=== PATIENT | female | born 1945 | race Caucasian/White ===

== ENCOUNTER 2017-09-18 08:31 | Inpatient (IN) | payer OTHER ==
[~2017-09-18] VITALS: Ht 165.1 cm; Wt 111.7 kg
[~2017-09-18 08:31] MED LIST: ALBU90OI INH; ASPI81CH PO; ATEN50 PO; ATOR40TA PO; BUPR150ER PO; BUPR75; FURO80 PO; GUAI120S1 PO; HYDACE5 PO; HYDPAM25 PO; IBUHYD PO; IRBE150; LISI5 PO; METPRE4DP PO; Macrobid 100 M100 MG PO; Micro-K10 MEQ PO; Norco 5-325 Ta1 EACH PO; OMEP20ER; PARO12.5; PARO20 PO; POTCHL10ER PO; Pyridium200 MG PO; ROSU10TA; SPACE CHAMBER1 EACH MC; [UNRECOGNIZED DRUG - OTHER]
[2017-09-18 09:14] LABS: Alanine Aminotransfer (ALT/SGP 40 U/L (12-78); Albumin, Blood 2.9 g/dL (3.4-5.0); Albumin/Globulin Ratio 0.9 (0.8-1.8); Alk Phos 65 U/L (50-136); Anion Gap 8 mmol/L (6-16); Aspartate Aminotrans (AST/SGOT 32 U/L (12-37); Bilirubin, Total 0.6 mg/dL (0.1-1.0); Blood Urea Nitrogen 16 mg/dL (8-24); Bun/Creatinine Ratio 21.6 (12.0-20.0); CO2, Blood 26 mmol/L (21-32); Calcium, Blood 8.2 mg/dL (8.5-10.1); Chloride, Blood 107 mmol/L (98-108); Creatinine, Blood 0.74 mg/dL (0.40-1.00); Globulin, Blood 3.3 g/dL (2.2-4.0); Glomerular Filtration Rate >60 (60-); Glucose, Blood 124 mg/dL (70-99); Potassium, Blood 3.8 mmol/L (3.5-5.5); Sodium, Blood 141 mmol/L (136-145); Total Protein, Blood 6.2 g/dL (6.4-8.2); Troponin I <0.015 ng/mL (0.000-0.040)
[2017-09-18 09:33] LABS: BASOPHILS ABSOLUTE AUTO 0.03 K/mm3 (0.00-0.23); BASOPHILS PERCENT AUTO 0 % (0-2); EOSINOPHILS PERCENT AUTO 1 % (0-6); Hematocrit 37.2 % (33.0-51.0); Hemoglobin 12.2 g/dL (11.5-16.0); IMMATURE GRAN ABSOLUTE AUTO 0.03 K/mm3 (0.00-0.10); IMMATURE GRAN PERCENT AUTO 0 % (0-1); LYMPHOCYTES ABSOLUTE AUTO 1.17 K/mm3 (0.84-5.20); LYMPHOCYTES PERCENT AUTO 16 % (21-46); MONOCYTES ABSOLUTE AUTO 0.55 K/mm3 (0.16-1.47); MONOCYTES PERCENT AUTO 8 % (4-13); Mean Corpuscular HGB Conc 32.8 g/dL (31.5-36.5); Mean Corpuscular Volume 85 fL (80-100); Mean Platelet Volume 9.9 fL (9.1-12.4); NEUTROPHILS ABSOLUTE AUTO 5.46 K/mm3 (1.96-9.15); NEUTROPHILS PERCENT AUTO 74 % (41-73); Platelet Count 187 K/mm3 (150-400); RDW Coefficient Variation 13.5 % (11.7-14.2); RDW Standard Deviation 42.2 fL (35.1-46.3); Red Blood Cell Count 4.36 M/mm3 (3.80-5.20); White Blood Cell Count 7.34 K/mm3 (4.00-11.30)
[2017-09-18 11:13] LABS: Source, Urine Clean Catch
[2017-09-18 11:18] LABS: Bilirubin, Urine Neg (Neg); Blood, Urine 2+ (Neg); Glucose Qualitative, Urine Neg (Neg); Ketones, Urine Neg (Neg); Leukocyte Esterase, Urine 1+ (Neg); Nitrite, Urine Neg (Neg); Protein, Urine Neg (Neg); Urobilinogen, Urine NORM (Normal)
[2017-09-18 11:32] LABS: Appearance, Urine Clear (Clear); Color, Urine Yellow (P-Yellow)
[2017-09-18 11:33] LABS: Bacteria Many /hpf; Red Blood Cells, Urine 0-2 /hpf (0-2); Squamous Epithelial Cells Few /hpf (Few)
[2017-09-18] MEDS ORDERED: ASPI325 PO (15:47)
[2017-09-18] MEDS ORDERED: ATEN100 PO (15:51)
[2017-09-18] MEDS ORDERED: ROSU10TA PO (15:53)
[2017-09-18] MEDS ORDERED: BACL10 PO (15:55)
[2017-09-18] MEDS ORDERED: TRAZ50 PO (15:55)
[2017-09-18] MEDS ORDERED: LOSA50 PO (15:58)
[2017-09-18] MEDS ORDERED: BENZ100A PO (15:59)
[2017-09-18] MEDS ORDERED: ARIP10 PO (16:01)
[2017-09-18] MEDS ORDERED: PANT40 PO (16:04)
[2017-09-18] MEDS ORDERED: IBUP600 PO (16:05)
[2017-09-18] MEDS ORDERED: ACET325 PO (16:06)
[2017-09-18] MEDS ORDERED: MECL12.5 PO (16:08)
[2017-09-18] MEDS ORDERED: ALBU90OI INH (16:09)
[2017-09-19 03:59] LABS: BASOPHILS ABSOLUTE AUTO 0.03 K/mm3 (0.00-0.23); BASOPHILS PERCENT AUTO 1 % (0-2); EOSINOPHILS ABSOLUTE AUTO 0.15 K/mm3 (0.00-0.68); EOSINOPHILS PERCENT AUTO 3 % (0-6); Hematocrit 38.6 % (33.0-51.0); Hemoglobin 12.7 g/dL (11.5-16.0); IMMATURE GRAN ABSOLUTE AUTO 0.02 K/mm3 (0.00-0.10); IMMATURE GRAN PERCENT AUTO 0 % (0-1); LYMPHOCYTES ABSOLUTE AUTO 1.86 K/mm3 (0.84-5.20); LYMPHOCYTES PERCENT AUTO 37 % (21-46); MONOCYTES ABSOLUTE AUTO 0.47 K/mm3 (0.16-1.47); MONOCYTES PERCENT AUTO 9 % (4-13); Mean Corpuscular HGB 28.3 pg (26.0-34.0); Mean Corpuscular HGB Conc 32.9 g/dL (31.5-36.5); Mean Corpuscular Volume 86 fL (80-100); NEUTROPHILS ABSOLUTE AUTO 2.51 K/mm3 (1.96-9.15); NEUTROPHILS PERCENT AUTO 50 % (41-73); Platelet Count 201 K/mm3 (150-400); RDW Coefficient Variation 13.9 % (11.7-14.2); RDW Standard Deviation 43.2 fL (35.1-46.3); Red Blood Cell Count 4.49 M/mm3 (3.80-5.20); White Blood Cell Count 5.04 K/mm3 (4.00-11.30)
[2017-09-19 04:15] LABS: Anion Gap 7 mmol/L (6-16); Blood Urea Nitrogen 14 mg/dL (8-24); Bun/Creatinine Ratio 18.8 (12.0-20.0); CO2, Blood 31 mmol/L (21-32); Calcium, Blood 8.2 mg/dL (8.5-10.1); Chloride, Blood 107 mmol/L (98-108); Creatinine, Blood 0.75 mg/dL (0.40-1.00); Glomerular Filtration Rate >60 (60-); Glucose, Blood 116 mg/dL (70-99); Potassium, Blood 3.3 mmol/L (3.5-5.5); Sodium, Blood 145 mmol/L (136-145)
[2017-09-20 04:38] LABS: Anion Gap 9 mmol/L (6-16); Blood Urea Nitrogen 19 mg/dL (8-24); Bun/Creatinine Ratio 22.6 (12.0-20.0); CO2, Blood 30 mmol/L (21-32); Calcium, Blood 8.4 mg/dL (8.5-10.1); Chloride, Blood 102 mmol/L (98-108); Creatinine, Blood 0.84 mg/dL (0.40-1.00); Glomerular Filtration Rate >60 (60-); Glucose, Blood 124 mg/dL (70-99); Potassium, Blood 3.5 mmol/L (3.5-5.5); Sodium, Blood 141 mmol/L (136-145)
[2017-09-22] MEDS ORDERED: ATEN50 PO (17:32)
== END 2017-09-22 18:27 | disposition home or self-care (01) | DRG 292 ==
LOC: ER 08:31 → PCU 13:21 → MEDS 15:30 → PCU 15:33 → MEDS 09-20 04:11 → ENPENDDIS 09-22 14:58 → MEDS 09-22 18:27
PROVIDERS: Emergency Medicine; Internal Medicine
DX: I11.0 Hypertensive heart disease with heart failure (principal); N39.0 Urinary tract infection, site not specified; Z68.41 Body mass index [BMI] 40.0-44.9, adult; I48.0 Paroxysmal atrial fibrillation; I50.32 Chronic diastolic (congestive) heart failure; I89.0 Lymphedema, not elsewhere classified; I10 Essential (primary) hypertension; R20.0 Anesthesia of skin; B96.20 Unspecified Escherichia coli [E. coli] as the cause of diseases classified elsewhere; E66.01 Morbid (severe) obesity due to excess calories
CPT/HCPCS: 36415; 71046; 80048; 80053; 81001; 83735; 83880; 84443; 84484; 85025; 87077; 87086; 87186; 93005; 93010; 93306; 94640; 94760; 96372; 96374; 96375; 99285; J0696; J1650; J2765; J7030; Q0177

== ENCOUNTER 2017-12-21 16:44 | Emergency (ER) | payer OTHER ==
[~2017-12-21] VITALS: Ht 165.1 cm; Wt 108.9 kg
[~2017-12-21 16:44] MED LIST changes: +ACET325 PO; +ARIP10 PO; +ASPI325 PO; +ATEN100 PO; +BACL10 PO; +BENZ100A PO; +IBUP600 PO; +LOSA50 PO; +MECL12.5 PO; +PANT40 PO; +ROSU10TA PO; +TRAZ50 PO
[2017-12-21] MEDS ORDERED: Norco 5-325 Ta1 EACH PO (17:27)
[2017-12-21] MEDS ORDERED: HYDHCL25 PO (17:30)
[2017-12-21] MEDS ORDERED: Bupropion Xl150 MG PO (17:30)
[2017-12-21] MEDS ORDERED: FURO80 PO (17:30)
[2017-12-21] MEDS ORDERED: PARO30 PO (17:31)
[2017-12-21] MEDS ORDERED: ARIP10 PO (17:31)
[2017-12-21] MEDS ORDERED: Micro-K10 MEQ PO (17:32)
[2017-12-21] MEDS ORDERED: LOSA50 PO (17:32)
[2017-12-21] MEDS ORDERED: BACL10 PO (17:32)
[2017-12-21] MEDS ORDERED: ATEN25 PO (17:32)
[2017-12-21] MEDS ORDERED: ELIQUIS5 MG PO (17:33)
[2017-12-21] MEDS ORDERED: TRAZ50 PO ×2 (17:34)
[2017-12-21] MEDS ORDERED: ROSU10TA PO (17:34)
[2017-12-21] MEDS ORDERED: PANT20 PO (17:35)
== END 2017-12-21 18:50 | disposition home or self-care (01) ==
LOC: ER 16:44
DX: S42.341A Displaced spiral fracture of shaft of humerus, right arm, initial encounter for closed fracture (principal); W01.198A Fall on same level from slipping, tripping and stumbling with subsequent striking against other object, initial encounter; I48.91 Unspecified atrial fibrillation; Z79.899 Other long term (current) drug therapy
CPT/HCPCS: 29125; 73060; 96374; 96376; 99284-25; J3010

== ENCOUNTER 2018-01-24 17:18 | Emergency (ER) | payer OTHER ==
[~2018-01-24] VITALS: Ht 167.6 cm; Wt 111.1 kg
[~2018-01-24 17:18] MED LIST changes: +ATEN25 PO; +Bupropion Xl150 MG PO; +ELIQUIS5 MG PO; +HYDHCL25 PO; +PANT20 PO; +PARO30 PO
== END 2018-01-24 20:29 | disposition home or self-care (01) ==
LOC: ER 17:18
DX: S42.341D Displaced spiral fracture of shaft of humerus, right arm, subsequent encounter for fracture with routine healing (principal); L25.8 Unspecified contact dermatitis due to other agents; I10 Essential (primary) hypertension; K21.9 Gastro-esophageal reflux disease without esophagitis; E78.5 Hyperlipidemia, unspecified; Z88.0 Allergy status to penicillin; Z79.899 Other long term (current) drug therapy; Z79.01 Long term (current) use of anticoagulants; Z87.891 Personal history of nicotine dependence
CPT/HCPCS: 99282

== ENCOUNTER 2018-06-07 13:23 | Emergency (ER) | payer OTHER ==
[~2018-06-07] VITALS: Ht 162.6 cm; Wt 103.9 kg
[2018-06-07] MEDS ORDERED: BENZ100A PO (14:44)
[2018-06-07] MEDS ORDERED: ALBU90OI INH (14:44)
== END 2018-06-07 15:00 | disposition home or self-care (01) ==
LOC: ER 13:23
DX: R05 Cough (principal); I48.91 Unspecified atrial fibrillation; I50.32 Chronic diastolic (congestive) heart failure; I11.0 Hypertensive heart disease with heart failure; Z79.899 Other long term (current) drug therapy; Z88.0 Allergy status to penicillin
CPT/HCPCS: 71046; 93005; 93010; 99283-25

== ENCOUNTER → 2018-11-06 | Outpatient (CLI) | payer OTHER ==
[2018-11-06 17:00] LABS: BASOPHILS ABSOLUTE AUTO 0.02 K/mm3 (0.00-0.23); BASOPHILS PERCENT AUTO 0 % (0-2); EOSINOPHILS ABSOLUTE AUTO 0.07 K/mm3 (0.00-0.68); EOSINOPHILS PERCENT AUTO 2 % (0-6); Hematocrit 44.8 % (33.0-51.0); IMMATURE GRAN ABSOLUTE AUTO 0.02 K/mm3 (0.00-0.10); IMMATURE GRAN PERCENT AUTO 0 % (0-1); LYMPHOCYTES ABSOLUTE AUTO 1.67 K/mm3 (0.84-5.20); LYMPHOCYTES PERCENT AUTO 36 % (21-46); MONOCYTES ABSOLUTE AUTO 0.49 K/mm3 (0.16-1.47); MONOCYTES PERCENT AUTO 11 % (4-13); Mean Corpuscular HGB Conc 33.5 g/dL (31.5-36.5); Mean Corpuscular Volume 87 fL (80-100); Mean Platelet Volume 10.1 fL (9.1-12.4); NEUTROPHILS PERCENT AUTO 51 % (41-73); Platelet Count 240 K/mm3 (150-400); RDW Coefficient Variation 14.6 % (11.7-14.2); RDW Standard Deviation 46.3 fL (35.1-46.3); Red Blood Cell Count 5.17 M/mm3 (3.80-5.20); White Blood Cell Count 4.67 K/mm3 (4.00-11.30)
[2018-11-06 17:26] LABS: Alanine Aminotransfer (ALT/SGP 33 U/L (12-78); Albumin, Blood 3.1 g/dL (3.4-5.0); Albumin/Globulin Ratio 0.9 (0.8-1.8); Alk Phos 73 U/L (40-126); Anion Gap 5 mmol/L (6-16); Aspartate Aminotrans (AST/SGOT 33 U/L (12-37); Bilirubin, Total 0.5 mg/dL (0.1-1.0); Blood Urea Nitrogen 14 mg/dL (8-24); Bun/Creatinine Ratio 14.1 (12.0-20.0); CO2, Blood 28 mmol/L (21-32); Calcium, Blood 8.9 mg/dL (8.5-10.1); Chloride, Blood 103 mmol/L (98-108); Creatinine, Blood 0.99 mg/dL (0.40-1.00); Globulin, Blood 3.6 g/dL (2.2-4.0); Glomerular Filtration Rate 55 (60-); Glucose, Blood 177 mg/dL (70-99); Potassium, Blood 3.4 mmol/L (3.5-5.5); Sodium, Blood 136 mmol/L (136-145); Total Protein, Blood 6.7 g/dL (6.4-8.2)
[2018-11-06 17:27] LABS: Troponin I <0.017 ng/mL (0.000-0.040)
== END ==
LOC: LAB SHORT 16:46 → LAB EV 16:46
PROVIDERS: Emergency Medicine
DX: R06.02 Shortness of breath (principal)
CPT/HCPCS: 80053; 83880; 84484; 85025

== ENCOUNTER 2020-05-13 07:54 | Emergency (ER) | payer MEDICARE, OTHER ==
[~2020-05-13] VITALS: Ht 172.7 cm; Wt 90.7 kg
[2020-05-13] MEDS ORDERED: HYDR1TAB94 PO (09:02)
== END 2020-05-13 09:17 | disposition home or self-care (01) ==
LOC: ER 07:54
DX: R07.89 Other chest pain (principal); R10.9 Unspecified abdominal pain; I10 Essential (primary) hypertension; Z88.0 Allergy status to penicillin; Z79.01 Long term (current) use of anticoagulants; Z79.899 Other long term (current) drug therapy; W06.XXXA Fall from bed, initial encounter
CPT/HCPCS: 71046; 99283-25; A9270-GY

== ENCOUNTER 2020-05-22 13:15 | Emergency (ER) | payer MEDICARE, OTHER ==
[~2020-05-22] VITALS: Ht 162.6 cm; Wt 99.8 kg
[~2020-05-22 13:15] MED LIST changes: +HYDR1TAB94 PO
[2020-05-22] MEDS ORDERED: Norco 5-325 Ta1 EACH PO (15:50)
[2020-05-22] MEDS ORDERED: SERT50 PO (16:05)
== END 2020-05-22 16:20 | disposition home or self-care (01) ==
LOC: ER 13:15
DX: S20.212A Contusion of left front wall of thorax, initial encounter (principal); I48.91 Unspecified atrial fibrillation; I10 Essential (primary) hypertension; Z79.899 Other long term (current) drug therapy; Z79.01 Long term (current) use of anticoagulants; X58.XXXA Exposure to other specified factors, initial encounter
CPT/HCPCS: 71100; 99283-25

== ENCOUNTER 2020-08-13 15:07 | Emergency (ER) | payer MEDICARE, OTHER ==
[~2020-08-13] VITALS: Ht 160 cm; Wt 99.8 kg
[~2020-08-13 15:07] MED LIST changes: +SERT50 PO
[2020-08-13] MEDS ORDERED: Norco 5-325 Ta1 EACH PO (16:28)
[2020-09-29] MEDS ORDERED: Roxicodone5 MG PO (16:22)
== END 2020-08-13 16:40 | disposition home or self-care (01) ==
LOC: ER 15:07
DX: S20.211A Contusion of right front wall of thorax, initial encounter (principal); I10 Essential (primary) hypertension; I48.91 Unspecified atrial fibrillation; Z88.0 Allergy status to penicillin; Z79.01 Long term (current) use of anticoagulants; Z79.899 Other long term (current) drug therapy; W18.09XA Striking against other object with subsequent fall, initial encounter; Y92.009 Unspecified place in unspecified non-institutional (private) residence as the place of occurrence of the external cause
CPT/HCPCS: 71046; 99283-25

== ENCOUNTER 2020-09-23 14:26 | Emergency (ER) | payer MEDICARE, OTHER ==
[~2020-09-23] VITALS: Ht 162.6 cm; Wt 135.6 kg
[2020-09-23 15:06] LABS: BASOPHILS ABSOLUTE AUTO 0.06 K/mm3 (0.00-0.23); BASOPHILS PERCENT AUTO 1 % (0-2); EOSINOPHILS ABSOLUTE AUTO 0.12 K/mm3 (0.00-0.68); EOSINOPHILS PERCENT AUTO 1 % (0-6); Hematocrit 45.2 % (33.0-51.0); Hemoglobin 14.9 g/dL (11.5-16.0); IMMATURE GRAN ABSOLUTE AUTO 0.15 K/mm3 (0.00-0.10); IMMATURE GRAN PERCENT AUTO 2 % (0-1); LYMPHOCYTES ABSOLUTE AUTO 1.27 K/mm3 (0.84-5.20); LYMPHOCYTES PERCENT AUTO 13 % (21-46); MONOCYTES ABSOLUTE AUTO 0.57 K/mm3 (0.16-1.47); MONOCYTES PERCENT AUTO 6 % (4-13); Mean Corpuscular HGB 29.3 pg (26.0-34.0); Mean Corpuscular Volume 89 fL (80-100); Mean Platelet Volume 10.4 fL (9.1-12.4); NEUTROPHILS PERCENT AUTO 77 % (41-73); Platelet Count 300 K/mm3 (150-400); RDW Coefficient Variation 13.9 % (11.7-14.2); RDW Standard Deviation 45.4 fL (35.1-46.3); Red Blood Cell Count 5.08 M/mm3 (3.80-5.20); White Blood Cell Count 9.57 K/mm3 (4.00-11.30)
[2020-09-23 15:25] LABS: Alanine Aminotransfer (ALT/SGP 83 U/L (12-78); Albumin, Blood 3.1 g/dL (3.4-5.0); Alk Phos 77 U/L (50-136); Anion Gap 7 mmol/L (6-16); Aspartate Aminotrans (AST/SGOT 71 U/L (12-37); Bilirubin, Total 0.4 mg/dL (0.1-1.0); Blood Urea Nitrogen 13 mg/dL (8-24); Bun/Creatinine Ratio 14.4 (12.0-20.0); CO2, Blood 30 mmol/L (21-32); Calcium, Blood 8.3 mg/dL (8.5-10.1); Chloride, Blood 107 mmol/L (98-108); Glomerular Filtration Rate >60 (60-); Glucose, Blood 122 mg/dL (70-99); Potassium, Blood 3.1 mmol/L (3.5-5.5); Sodium, Blood 144 mmol/L (136-145); Total Protein, Blood 6.1 g/dL (6.4-8.2); Troponin I <0.015 ng/mL (0.000-0.040)
[2020-09-23 23:12] LABS: Source, Urine Clean Catch
[2020-09-23 23:15] LABS: Bilirubin, Urine Neg (Neg); Blood, Urine 2+ (Neg); Glucose Qualitative, Urine Neg (Neg); Ketones, Urine Neg (Neg); Leukocyte Esterase, Urine 2+ (Neg); Nitrite, Urine Pos (Neg); Protein, Urine 1+ (Neg); Urobilinogen, Urine 1+ (Normal)
[2020-09-23 23:27] LABS: Amorphous Light (0-Heavy); Appearance, Urine Hazy (Clear); Bacteria Many /hpf; Color, Urine Yellow (P-Yellow); Mucus Light (0-Heavy); Squamous Epithelial Cells Few /hpf (Few)
[2020-09-24] MEDS ORDERED: MACROBID 100 M100 MG PO (00:44)
[2020-09-29] MEDS ORDERED: Roxicodone5 MG PO (16:22)
== END 2020-09-24 01:12 | disposition home or self-care (01) ==
LOC: ER 14:26
PROVIDERS: Physician Assistant
DX: N39.0 Urinary tract infection, site not specified (principal); E87.6 Hypokalemia; I10 Essential (primary) hypertension; Z79.899 Other long term (current) drug therapy; Z79.01 Long term (current) use of anticoagulants; Z88.0 Allergy status to penicillin
CPT/HCPCS: 71046; 80053; 81001; 83880; 84484; 85025; 87077; 87086; 87186; 93005; 93010; 96361; 96374; 99285-25; A9270; J1885; J7030

== ENCOUNTER 2020-11-13 16:24 | Emergency (ER) | payer MEDICARE, OTHER ==
[~2020-11-13] VITALS: Ht 162.6 cm; Wt 102.1 kg
[~2020-11-13 16:24] MED LIST changes: +MACROBID 100 M100 MG PO; +Roxicodone5 MG PO
== END 2020-11-13 17:15 | disposition home or self-care (01) ==
LOC: ER 16:24
DX: M25.562 Pain in left knee (principal); G89.29 Other chronic pain; Z88.0 Allergy status to penicillin; Z79.899 Other long term (current) drug therapy
CPT/HCPCS: 99283

== ENCOUNTER 2021-02-05 17:21 | Emergency (ER) | payer MEDICARE, OTHER ==
[~2021-02-05] VITALS: Ht 162.6 cm; Wt 99.8 kg
== END 2021-02-05 20:21 | disposition home or self-care (01) ==
LOC: ER 17:21
DX: S20.211A Contusion of right front wall of thorax, initial encounter (principal); M25.521 Pain in right elbow; I11.0 Hypertensive heart disease with heart failure; I50.9 Heart failure, unspecified; E03.9 Hypothyroidism, unspecified; K21.9 Gastro-esophageal reflux disease without esophagitis; I48.91 Unspecified atrial fibrillation; Z88.0 Allergy status to penicillin; Z79.899 Other long term (current) drug therapy; Z79.01 Long term (current) use of anticoagulants; Z86.73 Personal history of transient ischemic attack (TIA), and cerebral infarction without residual deficits; W19.XXXA Unspecified fall, initial encounter
CPT/HCPCS: 71045; 71100; 99283-25; A9270

== ENCOUNTER 2021-03-12 16:36 | Emergency (ER) | payer MEDICARE, OTHER ==
[~2021-03-12] VITALS: Ht 162.6 cm; Wt 99.8 kg
[2021-03-12 17:24] LABS: BASOPHILS ABSOLUTE AUTO 0.05 K/mm3 (0.00-0.23); BASOPHILS PERCENT AUTO 1 % (0-2); EOSINOPHILS ABSOLUTE AUTO 0.08 K/mm3 (0.00-0.68); EOSINOPHILS PERCENT AUTO 1 % (0-6); Hematocrit 47.4 % (33.0-51.0); Hemoglobin 15.3 g/dL (11.5-16.0); IMMATURE GRAN ABSOLUTE AUTO 0.07 K/mm3 (0.00-0.10); IMMATURE GRAN PERCENT AUTO 1 % (0-1); LYMPHOCYTES ABSOLUTE AUTO 0.73 K/mm3 (0.84-5.20); LYMPHOCYTES PERCENT AUTO 7 % (21-46); MONOCYTES ABSOLUTE AUTO 0.51 K/mm3 (0.16-1.47); MONOCYTES PERCENT AUTO 5 % (4-13); Mean Corpuscular HGB 30.1 pg (26.0-34.0); Mean Corpuscular HGB Conc 32.3 g/dL (31.5-36.5); Mean Corpuscular Volume 93 fL (80-100); NEUTROPHILS ABSOLUTE AUTO 9.52 K/mm3 (1.96-9.15); NEUTROPHILS PERCENT AUTO 87 % (41-73); NRBC ABSOLUTE 0.02 K/mm3 (0.00-0.02); NRBC Auto 0.2 /100 WBC (0.0-0.2); RDW Coefficient Variation 14.6 % (11.7-14.2); RDW Standard Deviation 50.4 fL (35.1-46.3); Red Blood Cell Count 5.08 M/mm3 (3.80-5.20); White Blood Cell Count 10.96 K/mm3 (4.00-11.30)
[2021-03-12 17:27] LABS: Mean Platelet Volume 10.4 fL (9.1-12.4); Platelet Count 200 K/mm3 (150-400)
[2021-03-12 17:34] LABS: Alanine Aminotransfer (ALT/SGP 81 U/L (12-78); Albumin, Blood 2.9 g/dL (3.4-5.0); Albumin/Globulin Ratio 0.8 (0.8-1.8); Alk Phos 122 U/L (50-136); Anion Gap 9 mmol/L (6-16); Aspartate Aminotrans (AST/SGOT 116 U/L (12-37); Bilirubin, Total 0.8 mg/dL (0.1-1.0); Blood Urea Nitrogen 14 mg/dL (8-24); Bun/Creatinine Ratio 19.3 (12.0-20.0); CO2, Blood 23 mmol/L (21-32); Calcium, Blood 8.6 mg/dL (8.5-10.1); Chloride, Blood 107 mmol/L (98-108); Creatinine, Blood 0.73 mg/dL (0.40-1.00); Globulin, Blood 3.5 g/dL (2.2-4.0); Glomerular Filtration Rate >60 (60-); Glucose, Blood 130 mg/dL (70-99); Potassium, Blood 4.3 mmol/L (3.5-5.5); Sodium, Blood 139 mmol/L (136-145); Total Protein, Blood 6.4 g/dL (6.4-8.2); Troponin I <0.015 ng/mL (0.000-0.040)
[2021-03-12] MEDS ORDERED: HYDR1TAB94 PO (19:21)
== END 2021-03-12 19:54 | disposition home or self-care (01) ==
LOC: ER 16:36
PROVIDERS: Physician Assistant
DX: S32.010A Wedge compression fracture of first lumbar vertebra, initial encounter for closed fracture (principal); R00.1 Bradycardia, unspecified; R29.6 Repeated falls; I11.0 Hypertensive heart disease with heart failure; I50.9 Heart failure, unspecified; I48.91 Unspecified atrial fibrillation; Z86.73 Personal history of transient ischemic attack (TIA), and cerebral infarction without residual deficits; E03.9 Hypothyroidism, unspecified; K21.9 Gastro-esophageal reflux disease without esophagitis; I50.32 Chronic diastolic (congestive) heart failure; Z87.891 Personal history of nicotine dependence; Z88.0 Allergy status to penicillin; Z79.899 Other long term (current) drug therapy; W18.30XA Fall on same level, unspecified, initial encounter
CPT/HCPCS: 71046; 72100; 80053; 84484; 85025; 93005; 93010; 99284-25; A9270

== ENCOUNTER 2021-10-13 10:53 | Emergency (ER) | payer MEDICARE, OTHER ==
[~2021-10-13] VITALS: Ht 162.6 cm; Wt 93.0 kg
[~2021-10-13 10:53] MED LIST changes: +Percocet 5-3251 EACH PO; +Voltaren100 GM TOP
[2021-10-13] MEDS ORDERED: Norco 5-325 Ta1 EACH PO (13:11)
== END 2021-10-13 13:33 | disposition home or self-care (01) ==
LOC: ER 10:53
DX: S27.321A Contusion of lung, unilateral, initial encounter (principal); S22.42XA Multiple fractures of ribs, left side, initial encounter for closed fracture; I11.0 Hypertensive heart disease with heart failure; I50.32 Chronic diastolic (congestive) heart failure; K21.9 Gastro-esophageal reflux disease without esophagitis; W10.9XXA Fall (on) (from) unspecified stairs and steps, initial encounter; Z88.0 Allergy status to penicillin; Z79.899 Other long term (current) drug therapy; Z86.73 Personal history of transient ischemic attack (TIA), and cerebral infarction without residual deficits; Z87.891 Personal history of nicotine dependence
CPT/HCPCS: 71101; A9270

== ENCOUNTER 2022-01-04 10:53 | Inpatient (IN) | payer OTHER, MEDICARE ==
[~2022-01-04] VITALS: Ht 162.6 cm; Wt 94.3 kg
[2022-01-04] MEDS ORDERED: EUTHYROX137 MC1 PO (11:12)
[2022-01-04 11:17] LABS: BASOPHILS ABSOLUTE AUTO 0.06 K/mm3 (0.00-0.23); BASOPHILS PERCENT AUTO 1 % (0-2); EOSINOPHILS ABSOLUTE AUTO 0.17 K/mm3 (0.00-0.68); EOSINOPHILS PERCENT AUTO 1 % (0-6); Hematocrit 39.9 % (33.0-51.0); Hemoglobin 12.9 g/dL (11.5-16.0); IMMATURE GRAN ABSOLUTE AUTO 0.04 K/mm3 (0.00-0.10); IMMATURE GRAN PERCENT AUTO 0 % (0-1); LYMPHOCYTES ABSOLUTE AUTO 3.61 K/mm3 (0.84-5.20); LYMPHOCYTES PERCENT AUTO 30 % (21-46); MONOCYTES ABSOLUTE AUTO 0.87 K/mm3 (0.16-1.47); MONOCYTES PERCENT AUTO 7 % (4-13); Mean Corpuscular HGB 28.4 pg (26.0-34.0); Mean Corpuscular HGB Conc 32.3 g/dL (31.5-36.5); Mean Corpuscular Volume 88 fL (80-100); Mean Platelet Volume 10.5 fL (9.1-12.4); NEUTROPHILS ABSOLUTE AUTO 7.48 K/mm3 (1.96-9.15); NEUTROPHILS PERCENT AUTO 61 % (41-73); Platelet Count 282 K/mm3 (150-400); RDW Coefficient Variation 14.7 % (11.7-14.2); RDW Standard Deviation 47.3 fL (35.1-46.3); Red Blood Cell Count 4.55 M/mm3 (3.80-5.20); White Blood Cell Count 12.23 K/mm3 (4.00-11.30)
[2022-01-04 11:35] LABS: Albumin, Blood 2.7 g/dL (3.4-5.0); Albumin/Globulin Ratio 0.9 (0.8-1.8); Bilirubin, Total 0.5 mg/dL (0.1-1.0); Bun/Creatinine Ratio 24.1 (12.0-20.0); Calcium, Blood 8.3 mg/dL (8.5-10.1); Creatinine, Blood 0.96 mg/dL (0.40-1.00); Globulin, Blood 2.9 g/dL (2.2-4.0); Potassium, Blood 2.7 mmol/L (3.5-5.5); Total Protein, Blood 5.6 g/dL (6.4-8.2)
--- NOTE | 2022-01-04 18:58 | NUR ---
SHIFT SUMMARY PT ADMITTED FROM ED FOR R FEMUR FRACTURE. OPEN FRACTURE WITH KNEE IMMOBILIZER IN PLACE WITH ABD PAD OVER OPEN SKIN. PT ON BLOOD THINNERS BUT DID NOT TAKE HER BLOOD THINNER TODAY. PT NPO AT MIDNIGHT FOR SURGERY TOMORROW. PAIN TREATED PER EMR WITH GOOD EFFECT. VAZQUEZ IN PLACE, PATENT AND DRAINING TO GRAVITY. VSS. REPORT GIVEN TO CATHERINE MERRITT.
[2022-01-05 03:19] LABS: SARS-Cov-2 (COVID-19) PCR, MMC NEGATIVE (NEGATIVE)
--- NOTE | 2022-01-05 04:21 | NUR ---
SUMMARY PT PAIN MEDS CHANGED THIS SHIFT. PT PAIN HAS BEEN MANAGED WELL DURING SHIFT. PT VAZQUEZ DRAINING WELL. PT HAS BEEN NPO SINCE MIDNIGHT. PT HAS BEEN ABLE TO SLEEP DURING SHIFT.
[2022-01-05 06:34] LABS: Albumin, Blood 2.7 g/dL (3.4-5.0); Bilirubin, Total 0.7 mg/dL (0.1-1.0); Bun/Creatinine Ratio 24.2 (12.0-20.0); Calcium, Blood 8.1 mg/dL (8.5-10.1); Creatinine, Blood 0.75 mg/dL (0.40-1.00); Globulin, Blood 2.7 g/dL (2.2-4.0); Magnesium, Blood 1.9 mg/dL (1.6-2.4); Potassium, Blood 2.9 mmol/L (3.5-5.5); Total Protein, Blood 5.4 g/dL (6.4-8.2)
[2022-01-05 06:35] LABS: International Normalized Ratio 1.09; Prothrombin Time Results 11.4 Sec (9.7-11.5)
[2022-01-05 06:44] LABS: BASOPHILS ABSOLUTE AUTO 0.06 K/mm3 (0.00-0.23); BASOPHILS PERCENT AUTO 1 % (0-2); EOSINOPHILS ABSOLUTE AUTO 0.14 K/mm3 (0.00-0.68); EOSINOPHILS PERCENT AUTO 1 % (0-6); Hematocrit 34.6 % (33.0-51.0); Hemoglobin 11.7 g/dL (11.5-16.0); IMMATURE GRAN ABSOLUTE AUTO 0.13 K/mm3 (0.00-0.10); IMMATURE GRAN PERCENT AUTO 1 % (0-1); LYMPHOCYTES ABSOLUTE AUTO 1.97 K/mm3 (0.84-5.20); LYMPHOCYTES PERCENT AUTO 15 % (21-46); MONOCYTES PERCENT AUTO 8 % (4-13); Mean Corpuscular HGB 29.5 pg (26.0-34.0); Mean Corpuscular HGB Conc 33.8 g/dL (31.5-36.5); Mean Corpuscular Volume 87 fL (80-100); Mean Platelet Volume 10.5 fL (9.1-12.4); NEUTROPHILS ABSOLUTE AUTO 10.01 K/mm3 (1.96-9.15); NEUTROPHILS PERCENT AUTO 75 % (41-73); Platelet Count 197 K/mm3 (150-400); RDW Coefficient Variation 14.9 % (11.7-14.2); RDW Standard Deviation 47.9 fL (35.1-46.3); Red Blood Cell Count 3.97 M/mm3 (3.80-5.20); White Blood Cell Count 13.31 K/mm3 (4.00-11.30)
--- NOTE | 2022-01-05 10:22 | NUR ---
PT HR SUSTAINING IN 130-140'S PER AUTOMATIC BRINE MIXER OPERATOR. CALL PLACED TO HOSPITALIST AND ORDERS RECEIVED.
--- NOTE | 2022-01-05 13:34 | NUR ---
PT TO PROCEDURE AT 1200.
--- NOTE | 2022-01-05 13:38 | NUR ---
01/05/22 1338 Guerline Rios PATIENT ARRIVED TO OR WITH VAZQUEZ CATHETER IN PLACE DRAINING YELLOW URINE.
--- NOTE | 2022-01-05 18:03 | NUR ---
SHIFT SUMMARY PT S/P FOR ORIF TO R DISTAL FEMUR. LEG IMMOBILIZER IN PLACE WITH LEELA WRAP DRESSING UNDER IT, CDI. PT ON TELE CONVERTING BETWEEN SINUS AND AFIB. PULSE TACH'D UP TO THE 130'S-140'S AND TREATED PER EMR. NO C/O PAIN POST OP. VAZQUEZ IN PLACE AND DRAINING TO GRAVITY. VSS.
[2022-01-06 05:01] LABS: BASOPHILS ABSOLUTE AUTO 0.02 K/mm3 (0.00-0.23); BASOPHILS PERCENT AUTO 0 % (0-2); EOSINOPHILS ABSOLUTE AUTO 0.01 K/mm3 (0.00-0.68); EOSINOPHILS PERCENT AUTO 0 % (0-6); Hematocrit 26.3 % (33.0-51.0); Hemoglobin 8.5 g/dL (11.5-16.0); IMMATURE GRAN PERCENT AUTO 1 % (0-1); LYMPHOCYTES ABSOLUTE AUTO 0.98 K/mm3 (0.84-5.20); LYMPHOCYTES PERCENT AUTO 7 % (21-46); MONOCYTES ABSOLUTE AUTO 0.94 K/mm3 (0.16-1.47); MONOCYTES PERCENT AUTO 6 % (4-13); Mean Corpuscular HGB 29.8 pg (26.0-34.0); Mean Corpuscular HGB Conc 32.3 g/dL (31.5-36.5); NEUTROPHILS ABSOLUTE AUTO 12.62 K/mm3 (1.96-9.15); NEUTROPHILS PERCENT AUTO 86 % (41-73); Platelet Count 192 K/mm3 (150-400); RDW Coefficient Variation 14.9 % (11.7-14.2); RDW Standard Deviation 50.4 fL (35.1-46.3); Red Blood Cell Count 2.85 M/mm3 (3.80-5.20); White Blood Cell Count 14.67 K/mm3 (4.00-11.30)
[2022-01-06 05:02] LABS: Mean Corpuscular Volume 92 fL (80-100)
[2022-01-06 05:35] LABS: Albumin, Blood 2.2 g/dL (3.4-5.0); Albumin/Globulin Ratio 0.8 (0.8-1.8); Bilirubin, Total 0.4 mg/dL (0.1-1.0); Bun/Creatinine Ratio 21.9 (12.0-20.0); Calcium, Blood 7.9 mg/dL (8.5-10.1); Creatinine, Blood 0.78 mg/dL (0.40-1.00); Globulin, Blood 2.6 g/dL (2.2-4.0); Potassium, Blood 3.5 mmol/L (3.5-5.5); Total Protein, Blood 4.8 g/dL (6.4-8.2)
--- NOTE | 2022-01-06 06:05 | NUR ---
SUMMARY PT HAS REMAINED COMFORTABLE THROUGHOUT SHIFT. NO NEW ISSUES NOTED. LEELA BANDAGE CDI. PT SLEPT OFF AND ON DURING THE SHIFT. NO NEW ISSUE NOTED.
[2022-01-06 14:31] LABS: SARS-Cov-2 (COVID-19) PCR, MMC NEGATIVE (NEGATIVE)
--- NOTE | 2022-01-06 16:30 | NUR ---
SHIFT SUMMARY POD 1 ORIF R FEMUR DRESSING REMAINS CDI DURING SHIFT. LEELA WRAP AND IMMOBILIZER IN PLACE. PATIENT WORKING WITH PT/OT. UP TO CHAIR TODAY. REPORTS FEELING VERY TIRED. PAIN INCREASED AFTER INCREASING MOBILITY. PATIENT IS 2 PERSON MAX ASSIST WITH STAND AND PIVOT. VAZQUEZ PATENT AND DRAINING PLAN TO REMOVE IN THE MORNING. PLAN IS FOR DISCHARGE TO [facility] ON MONDAY
[2022-01-07 10:44] LABS: BASOPHILS ABSOLUTE AUTO 0.04 K/mm3 (0.00-0.23); BASOPHILS PERCENT AUTO 0 % (0-2); EOSINOPHILS ABSOLUTE AUTO 0.14 K/mm3 (0.00-0.68); EOSINOPHILS PERCENT AUTO 1 % (0-6); Hemoglobin 7.9 g/dL (11.5-16.0); IMMATURE GRAN PERCENT AUTO 1 % (0-1); LYMPHOCYTES ABSOLUTE AUTO 1.13 K/mm3 (0.84-5.20); LYMPHOCYTES PERCENT AUTO 10 % (21-46); MONOCYTES ABSOLUTE AUTO 0.76 K/mm3 (0.16-1.47); MONOCYTES PERCENT AUTO 7 % (4-13); Mean Corpuscular HGB 29.8 pg (26.0-34.0); Mean Corpuscular HGB Conc 32.9 g/dL (31.5-36.5); Mean Corpuscular Volume 91 fL (80-100); Mean Platelet Volume 10.5 fL (9.1-12.4); NEUTROPHILS ABSOLUTE AUTO 8.77 K/mm3 (1.96-9.15); NEUTROPHILS PERCENT AUTO 80 % (41-73); Platelet Count 181 K/mm3 (150-400); RDW Coefficient Variation 14.9 % (11.7-14.2); RDW Standard Deviation 48.8 fL (35.1-46.3); Red Blood Cell Count 2.65 M/mm3 (3.80-5.20); White Blood Cell Count 10.94 K/mm3 (4.00-11.30)
[2022-01-07 11:04] LABS: Bun/Creatinine Ratio 25.6 (12.0-20.0); Calcium, Blood 7.4 mg/dL (8.5-10.1); Creatinine, Blood 0.67 mg/dL (0.40-1.00); Potassium, Blood 3.2 mmol/L (3.5-5.5)
--- NOTE | 2022-01-07 17:06 | NUR ---
SUMMARY: PT IS POD2 R FEMUR ORIF. A/O, VSS, TELE WNL. PT HAS DONE WELL TODAY SURGICAL SITE WNL, IMMOBILIZER IN PLACE. DR. JONES CHANGED DRESSING AT BEDSIDE. PAIN SEEMS MANAGED WITH 10MG OXYCODONE. VAZQUEZ DC'D AND PT ABLE TO VOID. ASKED DR. GUO FOR BOWEL CARE AND PLAN TO GIVE TONIGHT, PT REPORTS FEELING LIKE SHE WILL HAVE BM SOON. PT ABLE TO WORK WITH THERAPY AND UP TO CHAIR TODAY, NEEDS 2 MAX ASSIST WITH FWW AND GAIT BELT. NO ACUTE SAFETY CONCERN, WILL REPORT TO NOC RN
--- NOTE | 2022-01-08 05:10 | NUR ---
SHIFT SUMMARY PT POD 2 R ORIF, PT PAIN HAS BEEN WELL CONTROLLED MOST OF THE SHIFT. MEDICATED X1 FOR PAIN WITH EFFECT. IMMOBILIZER TO RIGHT LEG INTACT. PT PLESANT BUT DOES HAVE SOME FORGETFULNESS PT REMOVES TELE AND TUGS AT IV. IV SECURED FOR EXTRA SECURITY. PT REORIENTED NEEDED. BED ALARM IN PLACE FOR SAFETY. PT VOIDING WITHOUT DIFFICULTY AND HAS BEEN INCONTINENT. PLAN IS FOR DC SNF TODAY, BED IN LOWEST POSITION, CALL LIGHT WITHIN REACH.
[2022-01-08 05:33] LABS: BASOPHILS ABSOLUTE AUTO 0.05 K/mm3 (0.00-0.23); BASOPHILS PERCENT AUTO 1 % (0-2); EOSINOPHILS ABSOLUTE AUTO 0.19 K/mm3 (0.00-0.68); EOSINOPHILS PERCENT AUTO 2 % (0-6); Hematocrit 27.4 % (33.0-51.0); Hemoglobin 8.8 g/dL (11.5-16.0); IMMATURE GRAN PERCENT AUTO 1 % (0-1); LYMPHOCYTES ABSOLUTE AUTO 1.07 K/mm3 (0.84-5.20); LYMPHOCYTES PERCENT AUTO 10 % (21-46); MONOCYTES ABSOLUTE AUTO 0.75 K/mm3 (0.16-1.47); MONOCYTES PERCENT AUTO 7 % (4-13); Mean Corpuscular HGB 29.1 pg (26.0-34.0); Mean Corpuscular HGB Conc 32.1 g/dL (31.5-36.5); Mean Corpuscular Volume 91 fL (80-100); Mean Platelet Volume 10.4 fL (9.1-12.4); NEUTROPHILS ABSOLUTE AUTO 8.09 K/mm3 (1.96-9.15); NEUTROPHILS PERCENT AUTO 79 % (41-73); NRBC ABSOLUTE 0.02 K/mm3 (0.00-0.02); NRBC Auto 0.2 /100 WBC (0.0-0.2); Platelet Count 206 K/mm3 (150-400); RDW Coefficient Variation 14.8 % (11.7-14.2); RDW Standard Deviation 48.9 fL (35.1-46.3); Red Blood Cell Count 3.02 M/mm3 (3.80-5.20); White Blood Cell Count 10.25 K/mm3 (4.00-11.30)
[2022-01-08 06:11] LABS: Bun/Creatinine Ratio 26.6 (12.0-20.0); Calcium, Blood 7.7 mg/dL (8.5-10.1); Creatinine, Blood 0.56 mg/dL (0.40-1.00); Potassium, Blood 3.4 mmol/L (3.5-5.5)
[2022-01-08 08:34] LABS: Influenza A, PCR NEGATIVE (NEGATIVE); Influenza B, PCR NEGATIVE (NEGATIVE); Resp Syncytial Virus, PCR NEGATIVE (NEGATIVE); SARS-Cov-2 (COVID-19) PCR, MMC NEGATIVE (NEGATIVE)
[2022-01-08] MEDS ORDERED: ACET500 PO (11:27)
[2022-01-08] MEDS ORDERED: BISA10S PR (11:28)
[2022-01-08] MEDS ORDERED: DOCU100 PO (11:28)
[2022-01-08] MEDS ORDERED: DULCOLAX400 MG/5 M PO (11:29)
[2022-01-08] MEDS ORDERED: METO25 PO (11:30)
[2022-01-08] MEDS ORDERED: ONDA4ODT MM (11:31)
[2022-01-08] MEDS ORDERED: OXYC5 PO (11:32)
[2022-01-08] MEDS ORDERED: SENN187 PO (11:33)
[2022-01-08] MEDS ORDERED: VISBIOME 112.51 EACH PO (11:33)
[2022-01-08] MEDS ORDERED: ASCO500 PO (11:34)
[2022-01-08] MEDS ORDERED: CALCIUM CIT 311 EAC7 PO (11:34)
[2022-01-08] MEDS ORDERED: FERSU300 PO (11:34)
[2022-01-08] MEDS ORDERED: CEPH500 PO (11:35)
[2022-01-08] MEDS ORDERED: POTA10T PO (11:35)
--- NOTE | 2022-01-08 12:52 | NUR ---
Discharge Summary A/Ox3, pleasant. Refused to work with therapy today despite attempts to talk her into therapy. Medicated for severe back/R leg pain with good effect. Good appetite. Med rec completed with patient and meds have been updated by Dr. Hein. Dressing to RLE changed by Dr. Buckley yesterday, remains C/D/I with immobilizer in place. Tele: [id number]. 2L oxygen via NC, patient does desat to mid 80's when sleeping on RA. Report called and given to receiving RENÉ Bellamy at [facility]. NWB to E. Will provide transport d/c packet during pickup. Suppository given d/t last bm 11/04, successful.
== END 2022-01-08 12:52 | DRG 481 ==
LOC: ER 10:53 → SURS 14:23
PROVIDERS: Emergency Medicine; Family Medicine; Nurse Practitioner Acute Care; Orthopaedic Surgery; ADMIT Hospitalist
PROC: 3E0234Z Introduction of Serum, Toxoid and Vaccine into Muscle, Percutaneous Approach (ICD-10-PCS; 2022-01-04)
PROC: 0QSB06Z Reposition Right Lower Femur with Intramedullary Internal Fixation Device, Open Approach (ICD-10-PCS; principal; 2022-01-05 12:30)
DX: S72.401B Unspecified fracture of lower end of right femur, initial encounter for open fracture type I or II (principal); D62 Acute posthemorrhagic anemia; I50.32 Chronic diastolic (congestive) heart failure; I48.20 Chronic atrial fibrillation, unspecified; Z20.822 Contact with and (suspected) exposure to COVID-19; E66.01 Morbid (severe) obesity due to excess calories; Z23 Encounter for immunization; I10 Essential (primary) hypertension; E03.9 Hypothyroidism, unspecified; E78.5 Hyperlipidemia, unspecified; Z68.35 Body mass index [BMI] 35.0-35.9, adult; I89.0 Lymphedema, not elsewhere classified; E87.6 Hypokalemia; K21.9 Gastro-esophageal reflux disease without esophagitis; Z88.0 Allergy status to penicillin; Z79.01 Long term (current) use of anticoagulants; Z79.899 Other long term (current) drug therapy; Z86.73 Personal history of transient ischemic attack (TIA), and cerebral infarction without residual deficits; Z87.440 Personal history of urinary (tract) infections; Z98.891 History of uterine scar from previous surgery; Z90.710 Acquired absence of both cervix and uterus; Z98.890 Other specified postprocedural states; W18.39XA Other fall on same level, initial encounter; Y92.89 Other specified places as the place of occurrence of the external cause
CPT/HCPCS: 0241U; 29505; 36415; 51702; 71045; 73552; 80048; 80053; 83735; 85025; 85610; 90471; 90714; 93005; 93010; 94762; 96374-59; 96375-59; 96376-59; 97110; 97162; 97166; 97530; 99285-25; A9270; C1713; J0171; J0690; J0735; J1100; J1170; J1885; J2370; J2405; J2704; J2795; J3010; J3480; J7030; J7120; U0004

== ENCOUNTER 2022-12-19 14:06 | Inpatient (IN) | payer MEDICARE, OTHER ==
[~2022-12-19] VITALS: Ht 162.6 cm; Wt 90.6 kg
[~2022-12-19 14:06] MED LIST changes: +ACET500 PO; +ASCO500 PO; +BISA10S PR; +CALCIUM CIT 311 EAC7 PO; +CEPH500 PO; +DOCU100 PO; +DULCOLAX400 MG/5 M PO; +EUTHYROX137 MC1 PO; +FERSU300 PO; +METO25 PO; +ONDA4ODT MM; +OXYACE7.5T PO; +OXYC5 PO; +POTA10T PO; +SENN187 PO; +VISBIOME 112.51 EACH PO
[2022-12-19] MEDS ORDERED: ELIQUIS5 M3 PO (14:40)
[2022-12-19] MEDS ORDERED: ZANAFLEX413 PO (14:40)
[2022-12-19] MEDS ORDERED: ATOR40TA PO (14:40)
[2022-12-19] MEDS ORDERED: BUSPIRONE HCL5 M6 PO (14:41)
[2022-12-19] MEDS ORDERED: ZOLOFT50 MG PO (14:42)
[2022-12-19] MEDS ORDERED: FURO80 PO (14:42)
[2022-12-19 15:00] LABS: BASOPHILS ABSOLUTE AUTO 0.03 K/mm3 (0.00-0.23); BASOPHILS PERCENT AUTO 1 % (0-2); EOSINOPHILS ABSOLUTE AUTO 0.12 K/mm3 (0.00-0.68); EOSINOPHILS PERCENT AUTO 2 % (0-6); Hematocrit 42.8 % (33.0-51.0); Hemoglobin 13.8 g/dL (11.5-16.0); IMMATURE GRAN ABSOLUTE AUTO 0.02 K/mm3 (0.00-0.10); IMMATURE GRAN PERCENT AUTO 0 % (0-1); LYMPHOCYTES ABSOLUTE AUTO 1.54 K/mm3 (0.84-5.20); LYMPHOCYTES PERCENT AUTO 26 % (21-46); MONOCYTES ABSOLUTE AUTO 0.43 K/mm3 (0.16-1.47); MONOCYTES PERCENT AUTO 7 % (4-13); Mean Corpuscular HGB 29.4 pg (26.0-34.0); Mean Corpuscular HGB Conc 32.2 g/dL (31.5-36.5); Mean Corpuscular Volume 91 fL (80-100); NEUTROPHILS ABSOLUTE AUTO 3.91 K/mm3 (1.96-9.15); NEUTROPHILS PERCENT AUTO 65 % (41-73); Platelet Count 244 K/mm3 (150-400); RDW Coefficient Variation 14.2 % (11.7-14.2); Red Blood Cell Count 4.69 M/mm3 (3.80-5.20); White Blood Cell Count 6.05 K/mm3 (4.00-11.30)
[2022-12-19 15:13] LABS: Albumin, Blood 2.9 g/dL (3.4-5.0); Bilirubin, Total 0.9 mg/dL (0.1-1.0); Bun/Creatinine Ratio 17.9 (12.0-20.0); Calcium, Blood 8.7 mg/dL (8.5-10.1); Creatinine, Blood 0.9 mg/dL (0.40-1.00); Globulin, Blood 2.9 g/dL (2.2-4.0); Potassium, Blood 4.5 mmol/L (3.5-5.5); Total Protein, Blood 5.8 g/dL (6.4-8.2)
[2022-12-19 21:38] VITALS: BP 130/118
[2022-12-20 04:38] VITALS: BP 118/96
--- NOTE | 2022-12-20 05:02 | NUR ---
SHIFT SUMMARY PT TRANSFERRED TO FLOOR FROM EMERGENCY DEPARTMENT. ORIENTED TO CALL [facility] AND UNIT. PT AMBULATED TO BATHROOM AND C/O SOB, VS OBTAINED SHORTLY AFTER AMBULATION AND HER O2 WAS 88%, BUT QUICKLY WENT UP TO 91%. PLACED PATIENT ON 2L NC FOR COMFORT AND TO PREVENT DESATTING WHILE AMBULATING (WHICH EMERGENCY NURSE STATED SHE DESATS WHILE AMBULATING). 2 RN SKIN CHECK PERFORMED WITH HEYDI FAGAN RN NO PRESSURE ULCERS, PT HAD TWO SMALL SCRATCHES ON BILATERAL POSTERIOR THIGHS. NO OTHER SKIN CONCERNS. URINARY FREQUENCY NOTED, URINE CLEAR/YELLOW WITH NO ODOR. PT CALLS APPROPRIATELY, NO RAPID AFIB REPORTED THIS SHIFT. WILL CONTINUE TO MONITOR. Q1H FIRE SAFETY CHECKS COMPLETED WITH NO IGNITION SOURCES FOUND.
[2022-12-20 05:43] LABS: BASOPHILS ABSOLUTE AUTO 0.05 K/mm3 (0.00-0.23); BASOPHILS PERCENT AUTO 1 % (0-2); EOSINOPHILS ABSOLUTE AUTO 0.16 K/mm3 (0.00-0.68); EOSINOPHILS PERCENT AUTO 2 % (0-6); Hematocrit 42.8 % (33.0-51.0); Hemoglobin 13.8 g/dL (11.5-16.0); IMMATURE GRAN ABSOLUTE AUTO 0.03 K/mm3 (0.00-0.10); IMMATURE GRAN PERCENT AUTO 0 % (0-1); LYMPHOCYTES PERCENT AUTO 29 % (21-46); MONOCYTES ABSOLUTE AUTO 0.54 K/mm3 (0.16-1.47); MONOCYTES PERCENT AUTO 8 % (4-13); Mean Corpuscular HGB 29.1 pg (26.0-34.0); Mean Corpuscular HGB Conc 32.2 g/dL (31.5-36.5); Mean Corpuscular Volume 90 fL (80-100); Mean Platelet Volume 10.9 fL (9.1-12.4); NEUTROPHILS ABSOLUTE AUTO 4.14 K/mm3 (1.96-9.15); NEUTROPHILS PERCENT AUTO 60 % (41-73); Platelet Count 208 K/mm3 (150-400); RDW Coefficient Variation 14.2 % (11.7-14.2); RDW Standard Deviation 46.8 fL (35.1-46.3); Red Blood Cell Count 4.74 M/mm3 (3.80-5.20); White Blood Cell Count 6.92 K/mm3 (4.00-11.30)
[2022-12-20 06:57] LABS: Albumin, Blood 2.9 g/dL (3.4-5.0); Bilirubin, Total 0.8 mg/dL (0.1-1.0); Bun/Creatinine Ratio 20.1 (12.0-20.0); Calcium, Blood 8.6 mg/dL (8.5-10.1); Creatinine, Blood 0.95 mg/dL (0.40-1.00); Globulin, Blood 2.9 g/dL (2.2-4.0); Potassium, Blood 3.9 mmol/L (3.5-5.5); Thyroid Stimulating Hormone 4.47 uIU/mL (0.360-4.800); Total Protein, Blood 5.8 g/dL (6.4-8.2)
[2022-12-20 07:13] VITALS: BP 119/97
--- NOTE | 2022-12-20 12:18 | NUR ---
IGNITION RISK EDUCATION AND ASSESSMENT COMPLETED.
[2022-12-20 15:43] VITALS: BP 93/62
--- NOTE | 2022-12-20 16:26 | NUR ---
SHIFT SUMMARY PT AOX4, SBA TO THE COMMODE. SHE IS ON TELE RUNNING AFIB. SHE IS ON A 1500ML FLUID RESTRICTION. SHE CALLS WELL AND MAKES HER NEEDS KNOWN. PT C/O SLIGHT ANXIETY THIS AFTERNOON, MEDICATED PER THE EMAR. NO C/O P/N/V/CP/SOB. SHE IS CURRENTLY ON 1L NC, ATTEMPTING TO TITRATE HER OFF. CALL LIGHT WITHIN REACH, BED IN THE LOWEST POSITION. WILL REPORT TO ONCOMING NURSE.
--- NOTE | 2022-12-20 17:47 | NUR ---
DAILY WEIGHT ADMIT WEIGHT: 92.5KG TODAY'S ACTUAL WEIGHT: 90.6
[2022-12-20 20:27] VITALS: BP 144/112
[2022-12-21 03:50] VITALS: BP 135/87
--- NOTE | 2022-12-21 06:16 | NUR ---
INDEPENDENT IN ROOM TO BSC, REPORTS URINARY URGENCY THAT CAUSES INCONTINENCE. TELE IN PLACE, NO ISSUES REPORTED FROM TELE MONITOR, IRREGULAR RHYTHMS EXPECTED. OTHERWISE UNEVENTFUL NIGHT.
[2022-12-21 06:30] LABS: Albumin, Blood 2.8 g/dL (3.4-5.0); Bilirubin, Total 0.9 mg/dL (0.1-1.0); Bun/Creatinine Ratio 17.6 (12.0-20.0); Calcium, Blood 8.3 mg/dL (8.5-10.1); Creatinine, Blood 0.97 mg/dL (0.40-1.00); Globulin, Blood 2.9 g/dL (2.2-4.0); Potassium, Blood 3.5 mmol/L (3.5-5.5); Total Protein, Blood 5.7 g/dL (6.4-8.2)
[2022-12-21 08:32] VITALS: BP 135/96
--- NOTE | 2022-12-21 09:30 | NUR ---
NOTE: PROVIDER NOTIFIED OF SVT RUN AND RATE, NOTIFIED PROVIDER OF THE STRIPS IN THE CHART. NO NEW ORDERS AT THIS TIME.
--- NOTE | 2022-12-21 12:22 | NUR ---
FIRE SAFETY SUSTAINED T/O THE SHIFT. IGNITION SOURCES IDENTIFIED AND EDUCATION PROVIDED TO THE PT.
[2022-12-21 17:03] VITALS: BP 130/94
--- NOTE | 2022-12-21 17:48 | NUR ---
SHIFT SUMMARY NO ACUTE CHANGES, PT C/O ANXIETY THIS AM AND AFTERNOON, MEDICATED PER THE EMAR. SEE OTHER NOTES ABOUT TELE NOTIFICATIONS. PT INDEPENDENT TO THE BSC. SHE HAS A GOOD APPETITE AND CALLS WELL, MAKES HER NEEDS KNOWN. PLAN IS FOR HER TO DC TO HOME, [place], TOMORROW. CALL LIGHT WITHIN REACH, BED IN THE LOWEST POSITION. WILL REPORT TO ONCOMING NURSE.
--- NOTE | 2022-12-21 17:56 | NUR ---
NOTE: SPOKE WITH DR. CALLES AND SHE SAID IT IS OKAY TO DC THE PT IN THE AM EVEN THOUGH THERE ARE DC ORDERS IN PLACE. CHARGE NURSE NOTIFIED.
[2022-12-21 19:10] VITALS: BP 111/97
[2022-12-22 05:50] LABS: BASOPHILS ABSOLUTE AUTO 0.04 K/mm3 (0.00-0.23); BASOPHILS PERCENT AUTO 1 % (0-2); EOSINOPHILS ABSOLUTE AUTO 0.18 K/mm3 (0.00-0.68); EOSINOPHILS PERCENT AUTO 3 % (0-6); Hematocrit 45.8 % (33.0-51.0); Hemoglobin 15.1 g/dL (11.5-16.0); IMMATURE GRAN ABSOLUTE AUTO 0.02 K/mm3 (0.00-0.10); IMMATURE GRAN PERCENT AUTO 0 % (0-1); LYMPHOCYTES ABSOLUTE AUTO 2.23 K/mm3 (0.84-5.20); LYMPHOCYTES PERCENT AUTO 31 % (21-46); MONOCYTES ABSOLUTE AUTO 0.65 K/mm3 (0.16-1.47); MONOCYTES PERCENT AUTO 9 % (4-13); Mean Corpuscular HGB 29.4 pg (26.0-34.0); Mean Corpuscular Volume 89 fL (80-100); Mean Platelet Volume 10.6 fL (9.1-12.4); NEUTROPHILS ABSOLUTE AUTO 4.09 K/mm3 (1.96-9.15); NEUTROPHILS PERCENT AUTO 57 % (41-73); Platelet Count 247 K/mm3 (150-400); RDW Coefficient Variation 14.1 % (11.7-14.2); RDW Standard Deviation 45.9 fL (35.1-46.3); Red Blood Cell Count 5.13 M/mm3 (3.80-5.20); White Blood Cell Count 7.21 K/mm3 (4.00-11.30)
--- NOTE | 2022-12-22 06:30 | NUR ---
NO SIGNIFICANT CHANGES NOTED THIS SHIFT. INDEPENDENT TO BSC, VSS, MAKES NEEDS KNOWN. PT FEELS SHE HAS PROGRESSED ENOUGH TO GO DISCHARGE HOME. TELE IN PLACE, NO ISSUES REPORTED. FIRE SAFETY REVIEWED WITH PATIENT.
[2022-12-22 06:41] LABS: Bun/Creatinine Ratio 17.6 (12.0-20.0); Calcium, Blood 8.6 mg/dL (8.5-10.1); Creatinine, Blood 0.91 mg/dL (0.40-1.00); Potassium, Blood 3.7 mmol/L (3.5-5.5)
[2022-12-22 07:13] VITALS: BP 143/98
[2022-12-22] MEDS ORDERED: LOSA25 PO (14:12)
--- NOTE | 2022-12-22 15:20 | NUR ---
1415 Late entry for SHIFT/DISCHARGE SUMMARY; Pt remains A&O x3 this shift. Denies pain, VSS. Up with min ast to bathroom. 02 sat 95% on room air. Resp even nonlabored. All discharge instructions reviewed with return verbal understanding. Pt to lobby via transport chair/staff.
[2022-12-22 21:10] LABS: HEMOGLOBIN A1C 5.7 % (4.8-5.6)
== END 2022-12-22 14:32 | disposition home or self-care (01) | DRG 291 ==
LOC: ER 14:06 → MEDS 17:17 → SURS 17:17 → MEDS 21:05 → ENPENDDIS 12-21 17:57 → MEDS 12-22 14:32
PROVIDERS: Emergency Medicine; Family Medicine; ADMIT Student in an Organized Health Care Education/Training Program
PROC: 5A2204Z Restoration of Cardiac Rhythm, Single (ICD-10-PCS; principal; 2022-12-19)
DX: I11.0 Hypertensive heart disease with heart failure (principal); I50.43 Acute on chronic combined systolic (congestive) and diastolic (congestive) heart failure; J96.01 Acute respiratory failure with hypoxia; I48.20 Chronic atrial fibrillation, unspecified; E03.9 Hypothyroidism, unspecified; K21.9 Gastro-esophageal reflux disease without esophagitis; E66.9 Obesity, unspecified; F41.9 Anxiety disorder, unspecified; I27.20 Pulmonary hypertension, unspecified; Z86.73 Personal history of transient ischemic attack (TIA), and cerebral infarction without residual deficits; Z88.0 Allergy status to penicillin; Z79.01 Long term (current) use of anticoagulants; Z79.890 Hormone replacement therapy; Z79.899 Other long term (current) drug therapy; Z87.440 Personal history of urinary (tract) infections; Z90.710 Acquired absence of both cervix and uterus; Z98.890 Other specified postprocedural states; Z87.891 Personal history of nicotine dependence; Z68.34 Body mass index [BMI] 34.0-34.9, adult
CPT/HCPCS: 36415; 71045; 80048; 80053; 82947; 83036; 83735; 83880; 84443; 84484; 85025; 93005; 93010; 93306; 94760; 96374; 96375; 99285-25; A9270; J1940

== ENCOUNTER 2023-02-19 13:20 | Emergency (ER) | payer MEDICARE, OTHER ==
[~2023-02-19] VITALS: Ht 162.6 cm; Wt 99.3 kg
[~2023-02-19 13:20] MED LIST changes: +BUSPIRONE HCL5 M6 PO; +ELIQUIS5 M3 PO; +LOSA25 PO; +ZANAFLEX413 PO; +ZOLOFT50 MG PO
[2023-02-19 14:03] LABS: BASOPHILS ABSOLUTE AUTO 0.05 K/mm3 (0.00-0.23); BASOPHILS PERCENT AUTO 1 % (0-2); EOSINOPHILS ABSOLUTE AUTO 0.16 K/mm3 (0.00-0.68); EOSINOPHILS PERCENT AUTO 2 % (0-6); Hematocrit 40.9 % (33.0-51.0); IMMATURE GRAN ABSOLUTE AUTO 0.04 K/mm3 (0.00-0.10); IMMATURE GRAN PERCENT AUTO 1 % (0-1); LYMPHOCYTES ABSOLUTE AUTO 1.84 K/mm3 (0.84-5.20); LYMPHOCYTES PERCENT AUTO 26 % (21-46); MONOCYTES ABSOLUTE AUTO 0.52 K/mm3 (0.16-1.47); MONOCYTES PERCENT AUTO 8 % (4-13); Mean Corpuscular HGB 29.3 pg (26.0-34.0); Mean Corpuscular HGB Conc 31.8 g/dL (31.5-36.5); Mean Corpuscular Volume 92 fL (80-100); Mean Platelet Volume 10.5 fL (9.1-12.4); NEUTROPHILS ABSOLUTE AUTO 4.36 K/mm3 (1.96-9.15); NEUTROPHILS PERCENT AUTO 63 % (41-73); Platelet Count 183 K/mm3 (150-400); RDW Standard Deviation 51.6 fL (35.1-46.3); Red Blood Cell Count 4.43 M/mm3 (3.80-5.20); White Blood Cell Count 6.97 K/mm3 (4.00-11.30)
[2023-02-19 14:22] LABS: Albumin, Blood 2.9 g/dL (3.4-5.0); Bilirubin, Total 0.5 mg/dL (0.1-1.0); Bun/Creatinine Ratio 25.4 (12.0-20.0); Calcium, Blood 8.6 mg/dL (8.5-10.1); Creatinine, Blood 0.83 mg/dL (0.40-1.00); Globulin, Blood 2.9 g/dL (2.2-4.0); Potassium, Blood 3.9 mmol/L (3.5-5.5); Total Protein, Blood 5.8 g/dL (6.4-8.2)
[2023-02-19 19:30] VITALS: BP 132/94
[2023-02-24] MEDS ORDERED: DOCU100 PO (23:38)
[2023-02-24] MEDS ORDERED: FERSU300 PO (23:39)
[2023-02-24] MEDS ORDERED: PARO10 PO (23:41)
[2023-02-24] MEDS ORDERED: MELO7.5 PO (23:42)
== END 2023-02-19 19:37 | disposition home or self-care (01) ==
LOC: ER 13:20
PROVIDERS: Emergency Medicine
DX: R06.02 Shortness of breath (principal); I11.0 Hypertensive heart disease with heart failure; I50.32 Chronic diastolic (congestive) heart failure; E03.9 Hypothyroidism, unspecified; I48.20 Chronic atrial fibrillation, unspecified; K21.9 Gastro-esophageal reflux disease without esophagitis; Z86.73 Personal history of transient ischemic attack (TIA), and cerebral infarction without residual deficits; Z88.0 Allergy status to penicillin; Z79.01 Long term (current) use of anticoagulants; Z79.899 Other long term (current) drug therapy
CPT/HCPCS: 71046; 71260; 80053; 83880; 84484; 85025; 85379; 93005; 93010; 96374-59; 99284-25; A9270; J2405; Q9967

== ENCOUNTER → 2023-04-03 | Outpatient (CLI) | payer MEDICARE, OTHER ==
[~2023-04-03] MED LIST changes: +JARDIANCE25 MG PO; +MELO7.5 PO; +PARO10 PO; +SPIR25 PO
== END | disposition home or self-care (01) ==
LOC: LAB 14:00 → LAB SHORT 14:00
DX: N10 Acute pyelonephritis (principal)
CPT/HCPCS: 87077; 87086; 87186

== ENCOUNTER 2023-05-16 01:51 | Emergency (ER) | payer MEDICARE, OTHER ==
[~2023-05-16] VITALS: Ht 162.6 cm; Wt 89.8 kg
[2023-05-16 02:47] LABS: BASOPHILS ABSOLUTE AUTO 0.06 K/mm3 (0.00-0.23); BASOPHILS PERCENT AUTO 1 % (0-2); EOSINOPHILS ABSOLUTE AUTO 0.19 K/mm3 (0.00-0.68); EOSINOPHILS PERCENT AUTO 2 % (0-6); Hematocrit 46.8 % (33.0-51.0); Hemoglobin 14.9 g/dL (11.5-16.0); IMMATURE GRAN ABSOLUTE AUTO 0.03 K/mm3 (0.00-0.10); IMMATURE GRAN PERCENT AUTO 0 % (0-1); LYMPHOCYTES ABSOLUTE AUTO 2.47 K/mm3 (0.84-5.20); LYMPHOCYTES PERCENT AUTO 30 % (21-46); MONOCYTES ABSOLUTE AUTO 0.68 K/mm3 (0.16-1.47); MONOCYTES PERCENT AUTO 8 % (4-13); Mean Corpuscular HGB 29.4 pg (26.0-34.0); Mean Corpuscular HGB Conc 31.8 g/dL (31.5-36.5); Mean Corpuscular Volume 92 fL (80-100); Mean Platelet Volume 10.1 fL (9.1-12.4); NEUTROPHILS ABSOLUTE AUTO 4.89 K/mm3 (1.96-9.15); NEUTROPHILS PERCENT AUTO 59 % (41-73); Platelet Count 296 K/mm3 (150-400); RDW Coefficient Variation 14.7 % (11.7-14.2); RDW Standard Deviation 49.9 fL (35.1-46.3); Red Blood Cell Count 5.07 M/mm3 (3.80-5.20); White Blood Cell Count 8.32 K/mm3 (4.00-11.30)
[2023-05-16 02:59] LABS: Albumin/Globulin Ratio 0.9 (0.8-1.8); Bilirubin, Total 0.6 mg/dL (0.1-1.0); Bun/Creatinine Ratio 18.8 (12.0-20.0); Calcium, Blood 8.4 mg/dL (8.5-10.1); Creatinine, Blood 0.85 mg/dL (0.40-1.00); Globulin, Blood 3.3 g/dL (2.2-4.0); Potassium, Blood 4.5 mmol/L (3.5-5.5); Total Protein, Blood 6.3 g/dL (6.4-8.2)
[2023-05-16 03:40] LABS: Source, Urine Clean Catch
[2023-05-16 03:45] LABS: Bilirubin, Urine Neg (Neg); Blood, Urine 3+ (Neg); Glucose Qualitative, Urine 4+ (Neg); Ketones, Urine Neg (Neg); Leukocyte Esterase, Urine 1+ (Neg); Nitrite, Urine Pos (Neg); Protein, Urine 2+ (Neg); Specific Gravity, Urine 1.015 (1.003-1.022); Urobilinogen, Urine NORM (Normal)
[2023-05-16 04:05] LABS: Color, Urine Yellow (P-Yellow)
[2023-05-16 04:06] LABS: Appearance, Urine Cloudy (Clear); Bacteria Many /hpf; Squamous Epithelial Cells Few /hpf (Few); White Blood Cells, Urine 25-50 /hpf (0-5)
[2023-05-16 06:15] VITALS: BP 140/109
[2023-05-16] MEDS ORDERED: CEPH500 PO (06:41)
== END 2023-05-16 07:09 | disposition home or self-care (01) ==
LOC: ER 01:51
PROVIDERS: Emergency Medicine
DX: N39.0 Urinary tract infection, site not specified (principal); E86.0 Dehydration; M62.830 Muscle spasm of back; I11.0 Hypertensive heart disease with heart failure; I50.32 Chronic diastolic (congestive) heart failure; I48.91 Unspecified atrial fibrillation; E03.9 Hypothyroidism, unspecified; K21.9 Gastro-esophageal reflux disease without esophagitis; Z88.0 Allergy status to penicillin; Z79.899 Other long term (current) drug therapy; Z79.01 Long term (current) use of anticoagulants
CPT/HCPCS: 71046; 74177; 80053; 81001; 84484; 85025; 87077; 87086; 87186; 93005; 93010; 96365; 96375; 99285-25; A9270; J0696; J1885; J7030; Q9967

== ENCOUNTER 2023-05-19 09:29 | Emergency (ER) | payer MEDICARE, OTHER ==
[~2023-05-19] VITALS: Ht 162.6 cm; Wt 89.8 kg
[2023-05-19 10:03] LABS: BASOPHILS ABSOLUTE AUTO 0.04 K/mm3 (0.00-0.23); BASOPHILS PERCENT AUTO 1 % (0-2); EOSINOPHILS ABSOLUTE AUTO 0.13 K/mm3 (0.00-0.68); EOSINOPHILS PERCENT AUTO 2 % (0-6); Hematocrit 41.7 % (33.0-51.0); Hemoglobin 13.4 g/dL (11.5-16.0); IMMATURE GRAN ABSOLUTE AUTO 0.03 K/mm3 (0.00-0.10); IMMATURE GRAN PERCENT AUTO 1 % (0-1); LYMPHOCYTES ABSOLUTE AUTO 1.38 K/mm3 (0.84-5.20); LYMPHOCYTES PERCENT AUTO 22 % (21-46); MONOCYTES PERCENT AUTO 7 % (4-13); Mean Corpuscular HGB 29.6 pg (26.0-34.0); Mean Corpuscular HGB Conc 32.1 g/dL (31.5-36.5); Mean Corpuscular Volume 92 fL (80-100); Mean Platelet Volume 10.2 fL (9.1-12.4); NEUTROPHILS ABSOLUTE AUTO 4.22 K/mm3 (1.96-9.15); NEUTROPHILS PERCENT AUTO 68 % (41-73); Platelet Count 210 K/mm3 (150-400); RDW Coefficient Variation 14.5 % (11.7-14.2); RDW Standard Deviation 48.9 fL (35.1-46.3); Red Blood Cell Count 4.52 M/mm3 (3.80-5.20)
[2023-05-19 10:46] LABS: Albumin, Blood 2.6 g/dL (3.4-5.0); Albumin/Globulin Ratio 0.9 (0.8-1.8); Bilirubin, Total 0.7 mg/dL (0.1-1.0); Bun/Creatinine Ratio 17.4 (12.0-20.0); Creatinine, Blood 0.86 mg/dL (0.40-1.00); Globulin, Blood 2.8 g/dL (2.2-4.0); Potassium, Blood 3.9 mmol/L (3.5-5.5); Total Protein, Blood 5.4 g/dL (6.4-8.2)
[2023-05-19 11:30] VITALS: BP 112/76
== END 2023-05-19 12:02 | disposition home or self-care (01) ==
LOC: ER 09:29
PROVIDERS: Emergency Medicine
DX: I11.0 Hypertensive heart disease with heart failure (principal); I50.32 Chronic diastolic (congestive) heart failure; I95.9 Hypotension, unspecified; N39.0 Urinary tract infection, site not specified; B96.1 Klebsiella pneumoniae [K. pneumoniae] as the cause of diseases classified elsewhere; E78.5 Hyperlipidemia, unspecified; I48.91 Unspecified atrial fibrillation; E03.9 Hypothyroidism, unspecified; Z87.891 Personal history of nicotine dependence; J81.0 Acute pulmonary edema; K21.9 Gastro-esophageal reflux disease without esophagitis; Z87.440 Personal history of urinary (tract) infections; Z79.01 Long term (current) use of anticoagulants; Z79.899 Other long term (current) drug therapy; Z88.0 Allergy status to penicillin
CPT/HCPCS: 71045; 80053; 83880; 84484; 85025; 93005; 93010; 96374; 99285-25; J1940

== ENCOUNTER 2024-02-07 22:46 | Emergency (ER) | payer MEDICARE, OTHER ==
[~2024-02-07] VITALS: Ht 162.6 cm; Wt 92.5 kg
[~2024-02-07 22:46] MED LIST changes: +ENTRESTO 24 MG1 EACH PO; +JARDIANCE10 MG PO; +LEVSOD150 PO; +METO100ER PO
[2024-02-07 22:52] VITALS: BP 126/78
[2024-02-08] MEDS ORDERED: Ondansetron HCl 2 MG / ML 2ML Vial IV ONE (00:05)
[2024-02-08 00:19] LABS: Albumin, Blood 3.3 g/dL (3.4-5.0); Albumin/Globulin Ratio 1.1 (0.8-1.8); Bun/Creatinine Ratio 22.2 (12.0-20.0); Calcium, Blood 9.3 mg/dL (8.5-10.1); Creatinine, Blood 0.99 mg/dL (0.40-1.00); Globulin, Blood 3.1 g/dL (2.2-4.0); Potassium, Blood 4.1 mmol/L (3.5-5.5); Total Protein, Blood 6.4 g/dL (6.4-8.2)
[2024-02-08 01:11] LABS: BASOPHILS ABSOLUTE AUTO 0.04 K/mm3 (0.00-0.23); BASOPHILS PERCENT AUTO 1 % (0-2); EOSINOPHILS ABSOLUTE AUTO 0.09 K/mm3 (0.00-0.68); EOSINOPHILS PERCENT AUTO 1 % (0-6); Hematocrit 46.5 % (33.0-51.0); Hemoglobin 15.6 g/dL (11.5-16.0); IMMATURE GRAN ABSOLUTE AUTO 0.06 K/mm3 (0.00-0.10); IMMATURE GRAN PERCENT AUTO 1 % (0-1); LYMPHOCYTES ABSOLUTE AUTO 1.93 K/mm3 (0.84-5.20); LYMPHOCYTES PERCENT AUTO 24 % (21-46); MONOCYTES ABSOLUTE AUTO 0.81 K/mm3 (0.16-1.47); MONOCYTES PERCENT AUTO 10 % (4-13); Mean Corpuscular HGB 30.8 pg (26.0-34.0); Mean Corpuscular HGB Conc 33.5 g/dL (31.5-36.5); Mean Corpuscular Volume 92 fL (80-100); Mean Platelet Volume 10.1 fL (9.1-12.4); NEUTROPHILS ABSOLUTE AUTO 5.23 K/mm3 (1.96-9.15); NEUTROPHILS PERCENT AUTO 64 % (41-73); Platelet Count 203 K/mm3 (150-400); RDW Coefficient Variation 13.7 % (11.7-14.2); RDW Standard Deviation 46.5 fL (35.1-46.3); Red Blood Cell Count 5.06 M/mm3 (3.80-5.20); White Blood Cell Count 8.16 K/mm3 (4.00-11.30)
[2024-02-08 01:47] LABS: International Normalized Ratio 1.1; Prothrombin Time Results 11.7 Sec (9.7-11.5)
[2024-02-08 02:34] LABS: Source, Urine Clean Catch
[2024-02-08 02:38] LABS: Bilirubin, Urine Neg (Neg); Blood, Urine 3+ (Neg); Glucose Qualitative, Urine 4+ (Neg); Ketones, Urine Neg (Neg); Leukocyte Esterase, Urine Neg (Neg); Nitrite, Urine Neg (Neg); Protein, Urine Neg (Neg); Urobilinogen, Urine NORM (Normal)
[2024-02-08 02:46] LABS: Appearance, Urine Clear (Clear); Color, Urine Yellow (P-Yellow)
[2024-02-08 02:47] LABS: Bacteria Few /hpf; Hyaline Casts 0-2 /lpf (0-2); Red Blood Cells, Urine 0-2 /hpf (0-2); Squamous Epithelial Cells Few /hpf (Few); White Blood Cells, Urine 0-2 /hpf (0-5)
[2024-02-08] MEDS ORDERED: ONDA4ODT MM (02:58)
== END 2024-02-08 05:06 | disposition home or self-care (01) ==
LOC: ER 22:46
PROVIDERS: Emergency Medicine
DX: R11.0 Nausea (principal); I89.0 Lymphedema, not elsewhere classified; K21.9 Gastro-esophageal reflux disease without esophagitis; I48.91 Unspecified atrial fibrillation; I11.0 Hypertensive heart disease with heart failure; I50.32 Chronic diastolic (congestive) heart failure; Z86.73 Personal history of transient ischemic attack (TIA), and cerebral infarction without residual deficits; Z79.899 Other long term (current) drug therapy; Z88.0 Allergy status to penicillin
CPT/HCPCS: 74022; 80053; 81001; 83605; 83690; 83880; 84484; 85025; 85610; 85730; 96374; 99284-25; J2405

== ENCOUNTER 2024-03-04 09:35 | Day surgery (SDC) | payer MEDICARE, OTHER ==
[2024-03-04] VITALS (35 sets, daily range): BP systolic 119–213; BP diastolic 75–141
[2024-03-04] MEDS ORDERED: Benzocaine Oral Spray 0.5ML UD ONE (09:57)
[2024-03-04] MEDS ORDERED: NS 1,000 ML IV ONE (10:22)
[2024-03-04] MEDS ORDERED: Etomidate 2MG / ML 10ML Vial ONE (10:27)
[2024-03-04] MEDS ORDERED: Vasopressin 20 UNITS/ML 1ML Vial ONE (10:29)
[2024-03-04] MEDS ORDERED: propofoL 50 ML IV ONE (10:32)
[2024-03-04] MEDS ORDERED: Furosemide 80 MG Tab PO ONE (11:35)
[2024-03-04] MEDS ORDERED: Potassium Chloride 20 MEQ TabCR PO ONE (11:35)
[2024-03-04] MEDS ORDERED: Losartan Potassium 25 MG Tab PO ONE ×2 (11:35→11:40)
--- NOTE | 2024-03-04 11:40 | NUR ---
patient awake and asking questions, procedure canceled. medication off at 11:23 per anasthesiologist.
--- NOTE | 2024-03-04 11:44 | NUR ---
patient sitting up in bed, Alert and responds appropriately to questions
[2024-03-04] MEDS ORDERED: MECL25 PO (12:44)
[2024-03-04] MEDS ORDERED: METO50ER PO (12:46)
[2024-03-04] MEDS ORDERED: TIZA4 PO (12:47)
[2024-03-04] MEDS ORDERED: DIGOX250 MCG PO (12:48)
--- NOTE | 2024-03-04 13:27 | NUR ---
Echo at bedside. pt tolerating sips of water with out difficulty. denies any numbness or difficulty swallowing at this time. Attempting to get home medications organized, pt reports she is unsure at times of home medications changes, and dosing. Pt daughter at bedside and reports frequent medication changes and pt is unable to keep things straight at home. Med list printed for Dr. Espino to complete. plans for dc to home.
--- NOTE | 2024-03-04 13:35 | NUR ---
pt prepared for discharge. pt. vss upon discharge. iv removed, catheter intact. pt taken to exit via wheel chair. pt able to speak clearly, swallow with out difficlulty prior to departure.
--- NOTE | 2024-03-04 13:47 | NUR ---
Dr. Crawley in to see pt prior to dc. He would like to see pt for follow up olivia in the office to discuss plan and medications. call to office, pt daughter requested they call her at [phone]
[2024-03-04] MEDS ORDERED: Glycopyrrolate 0.2 MG/ML 5ML SYR (1MG Total) IV ONE (16:15)
== END 2024-03-05 23:14 | disposition home or self-care (01) ==
LOC: MHTC 09:35
DX: I48.91 Unspecified atrial fibrillation (principal); I27.20 Pulmonary hypertension, unspecified; I36.1 Nonrheumatic tricuspid (valve) insufficiency; I13.0 Hypertensive heart and chronic kidney disease with heart failure and stage 1 through stage 4 chronic kidney disease, or unspecified chronic kidney disease; N18.9 Chronic kidney disease, unspecified; I50.20 Unspecified systolic (congestive) heart failure; K21.9 Gastro-esophageal reflux disease without esophagitis; E03.9 Hypothyroidism, unspecified; G47.33 Obstructive sleep apnea (adult) (pediatric); Z87.891 Personal history of nicotine dependence
CPT/HCPCS: 93306; 93312; 93325; A9270; J2704; J7030

== ENCOUNTER → 2024-05-24 | Outpatient (CLI) | payer MEDICARE, OTHER ==
[~2024-05-24] MED LIST changes: +DIGOX250 MCG PO; +MECL25 PO; +METO50ER PO; +TIZA4 PO
== END ==
LOC: LAB 13:34 → LAB SHORT 13:34
DX: N39.0 Urinary tract infection, site not specified (principal)
CPT/HCPCS: 87077; 87086; 87186

== ENCOUNTER → 2024-10-04 | Outpatient (CLI) | payer MEDICARE, OTHER | LOC: LAB 12:25 → LAB SHORT 12:25 | DX: R30.0 Dysuria (principal) | CPT/HCPCS: 87077; 87086; 87186 ==

== ENCOUNTER → 2024-10-25 | Outpatient (CLI) | payer MEDICARE, OTHER | END | disposition home or self-care (01) | LOC: LAB 13:17 → LAB SHORT 13:17 | DX: N39.0 Urinary tract infection, site not specified (principal) | CPT/HCPCS: 87077; 87086; 87186 ==

== ENCOUNTER 2024-11-07 16:44 | Inpatient (IN) | payer MEDICARE ==
[~2024-11-07] VITALS: Ht 162.6 cm; Wt 85.5 kg
[2024-11-07] MEDS ORDERED: NS 1,000 ML IV SCH (17:25)
[2024-11-07] MEDS ORDERED: Acetaminophen 500 MG Tab PO ONE (17:30)
[2024-11-07 17:48] LABS: Hematocrit 37.9 % (33.0-51.0); Hemoglobin 12.5 g/dL (11.5-16.0); Mean Corpuscular HGB 30.5 pg (26.0-34.0); Mean Corpuscular Volume 92 fL (80-100); Mean Platelet Volume 10.8 fL (9.1-12.4); Platelet Count 303 K/mm3 (150-400); RDW Coefficient Variation 14.8 % (11.7-14.2); RDW Standard Deviation 49.5 fL (35.1-46.3); White Blood Cell Count 9.08 K/mm3 (4.00-11.30)
[2024-11-07 18:11] LABS: Free Thyroxine 1.22 ng/dL (0.70-1.60); Magnesium, Blood 1.6 mg/dL (1.6-2.4)
[2024-11-07 18:16] LABS: Albumin, Blood 2.1 g/dL (3.4-5.0); Albumin/Globulin Ratio 0.8 (0.8-1.8); Bilirubin, Total 0.8 mg/dL (0.1-1.0); Bun/Creatinine Ratio 25.2 (12.0-20.0); Calcium, Blood 8.5 mg/dL (8.5-10.1); Creatinine, Blood 0.95 mg/dL (0.40-1.00); Globulin, Blood 2.6 g/dL (2.2-4.0); Thyroid Stimulating Hormone 9.16 uIU/mL (0.360-4.800); Total Protein, Blood 4.7 g/dL (6.4-8.2)
[2024-11-07 18:39] LABS: BAND PERCENT MAN 1 % (0-8); BASOPHILS ABSOLUTE MAN 0.18 K/mm3 (0.00-0.23); BASOPHILS PERCENT MAN 2 % (0-2); Digoxin (Lanoxin) 1.09 ug/mL (0.80-2.00); EOSINOPHILS ABSOLUTE MAN 0.18 K/mm3 (0.00-0.68); EOSINOPHILS PERCENT MAN 2 % (0-6); LYMPHOCYTES PERCENT MAN 10 % (21-46); METAMYELOCYTE ABSOLUTE MAN 0.18 K/mm3 (0.00-0.00); METAMYELOCYTE PERCENT MAN 2 % (0-0); MONOCYTES ABSOLUTE MAN 0.18 K/mm3 (0.16-1.47); MONOCYTES PERCENT MAN 2 % (4-13); NEUTROPHILS ABSOLUTE MAN 7.44 K/mm3 (1.96-9.15); SEG NEUTROPHILS PERCENT MAN 81 % (41-73); TOTAL CELLS COUNTED 100
[2024-11-07] MEDS ORDERED: Clopidogrel Bisulfate 300 MG TABLET PO ONE (20:35)
[2024-11-07] MEDS ORDERED: Aspirin 325 MG Tab PO ONE (20:40)
[2024-11-07] MEDS ORDERED: Meclizine HCl 25 MG Tab PO PRN (20:45)
[2024-11-07] MEDS ORDERED: Acetaminophen 500 MG Tab PO PRN (20:45)
[2024-11-07] MEDS ORDERED: TiZANidine HCl 4 MG Tab PO PRN (20:45)
[2024-11-07] MEDS ORDERED: Ondansetron 4 MG SoluTab MM PRN ×2 (20:50)
[2024-11-07] MEDS ORDERED: Apixaban 5 MG Tab PO SCH (21:00)
[2024-11-07] MEDS ORDERED: Furosemide 80 MG Tab PO SCH (21:00)
[2024-11-07] MEDS ORDERED: Metoprolol Succinate 50 MG TABCR PO SCH (21:00)
[2024-11-07 23:39] VITALS: BP 108/74
--- NOTE | 2024-11-08 04:39 | NUR ---
SHIFT SUMMARY; PATIENT SLEPT IN LONG INTERVVAL AFTER ADMIT PROCEDURES. HAS NOT BEEN UP, INCONTIEN OF URINE
[2024-11-08 04:54] VITALS: BP 110/69
[2024-11-08 05:25] LABS: Albumin, Blood 2.1 g/dL (3.4-5.0); Albumin/Globulin Ratio 0.7 (0.8-1.8); Bilirubin, Total 0.8 mg/dL (0.1-1.0); Bun/Creatinine Ratio 21.8 (12.0-20.0); Creatinine, Blood 1.01 mg/dL (0.40-1.00); Globulin, Blood 2.9 g/dL (2.2-4.0); Hematocrit 41.1 % (33.0-51.0); Hemoglobin 14.2 g/dL (11.5-16.0); Mean Corpuscular HGB 30.7 pg (26.0-34.0); Mean Corpuscular HGB Conc 34.5 g/dL (31.5-36.5); Mean Corpuscular Volume 89 fL (80-100); Mean Platelet Volume 10.7 fL (9.1-12.4); Platelet Count 292 K/mm3 (150-400); Potassium, Blood 3.8 mmol/L (3.5-5.5); RDW Coefficient Variation 14.7 % (11.7-14.2); RDW Standard Deviation 46.7 fL (35.1-46.3); Red Blood Cell Count 4.62 M/mm3 (3.80-5.20); White Blood Cell Count 11.86 K/mm3 (4.00-11.30)
[2024-11-08] MEDS ORDERED: Pantoprazole Sodium 40 MG Tab PO SCH (06:00)
[2024-11-08 06:25] LABS: BAND PERCENT MAN 2 % (0-8); BASOPHILS ABSOLUTE MAN 0.11 K/mm3 (0.00-0.23); BASOPHILS PERCENT MAN 1 % (0-2); EOSINOPHILS ABSOLUTE MAN 0.47 K/mm3 (0.00-0.68); EOSINOPHILS PERCENT MAN 4 % (0-6); LYMPHOCYTES ABSOLUTE MAN 1.77 K/mm3 (0.84-5.20); LYMPHOCYTES PERCENT MAN 15 % (21-46); METAMYELOCYTE ABSOLUTE MAN 0.23 K/mm3 (0.00-0.00); METAMYELOCYTE PERCENT MAN 2 % (0-0); MONOCYTES ABSOLUTE MAN 0.59 K/mm3 (0.16-1.47); MONOCYTES PERCENT MAN 5 % (4-13); NEUTROPHILS ABSOLUTE MAN 8.65 K/mm3 (1.96-9.15); SEG NEUTROPHILS PERCENT MAN 71 % (41-73); TOTAL CELLS COUNTED 100
[2024-11-08] MEDS ORDERED: Potassium Chloride 10 Meq Tablet SA PO SCH (08:00)
[2024-11-08 08:04] VITALS: BP 117/58
[2024-11-08] MEDS ORDERED: Furosemide 80 MG Tab PO SCH ×2 (09:00)
[2024-11-08] MEDS ORDERED: BusPIRone HCl 10 MG Tab PO SCH (09:00)
[2024-11-08] MEDS ORDERED: PARoxetine HCl 10 MG Tab PO SCH (09:00)
[2024-11-08] MEDS ORDERED: Metoprolol Succinate 50 MG TABCR PO SCH (09:00)
[2024-11-08] MEDS ORDERED: Atorvastatin 40 MG Tab PO SCH (09:00)
[2024-11-08] MEDS ORDERED: Losartan Potassium 25 MG Tab PO SCH (09:00)
[2024-11-08] MEDS ORDERED: Aspirin 81 MG Chew PO SCH (09:00)
[2024-11-08] MEDS ORDERED: Clopidogrel Bisulfate 75 MG Tab PO SCH (09:00)
[2024-11-08] MEDS ORDERED: Enoxaparin 40 MG/0.4 ML SYR SC SCH (09:00)
[2024-11-08] MEDS ORDERED: Levothyroxine Sodium 0.15 MG Tab PO SCH (09:00)
[2024-11-08] MEDS ORDERED: Digoxin 0.25 MG Tab PO SCH (09:00)
[2024-11-08 11:15] VITALS: BP 103/65
[2024-11-08] MEDS ORDERED: HyDROXyzine HCl 25 MG Tab PO ONE (13:30)
[2024-11-08 16:24] VITALS: BP 94/48
--- NOTE | 2024-11-08 19:13 | NUR ---
PATIENT CONFUSION AND FORGETFULNESS INCREASED LATER IN THE DAY, PATIENT REPORTED FEELING ANXIOUS AND TERRIBLE. MEDICATED WITH ATARAX, PATIENT REPORTED RELIEF. MRI POSITIVE FOR A STROKE, WORKED WITH ST TODAY, CALL LIGHT WITH IN REACH, REPORTED TO PM RN
[2024-11-08 20:25] VITALS: BP 100/66
--- NOTE | 2024-11-09 04:02 | NUR ---
SHIFT SUMMARY PATIENT HAD NO ACUTE CHANGES. ALERT ORIENTED X 3 AND 1-2 ASSIST TO BSC. DENIES CHEST PAIN, SOB, AND N/V. VSS/AFEBRILE. PIV INTACT. SLEPT MOST OF THE SHIFT. COOPERATIVE WITH CARE. CALL LIGHT IN REACH. BED INLOWEST POSITION. WILL CONTINUE TO MONITOR UNTIL DAY SHIFT NURSE ASSUMES CARE.
--- NOTE | 2024-11-09 04:41 | NUR ---
PATIENT HAVING INCREASED CONFUSION. NOT SURE WHERE EVERYONE IS INCLUDING HER FAMILY. PATIENT NOT ABLE TO REORIENT AT THIS TIME. REFUSING LAB AT THIS TIME. LAB REPORTS WILL RETRY AT 8:00. JOHN.
[2024-11-09 04:50] VITALS: BP 109/63
[2024-11-09 06:21] LABS: Hematocrit 42.9 % (33.0-51.0); Hemoglobin 14.4 g/dL (11.5-16.0); Mean Corpuscular HGB 30.8 pg (26.0-34.0); Mean Corpuscular HGB Conc 33.6 g/dL (31.5-36.5); Mean Corpuscular Volume 92 fL (80-100); Mean Platelet Volume 10.2 fL (9.1-12.4); Platelet Count 362 K/mm3 (150-400); RDW Standard Deviation 49.6 fL (35.1-46.3); Red Blood Cell Count 4.68 M/mm3 (3.80-5.20); White Blood Cell Count 8.65 K/mm3 (4.00-11.30)
[2024-11-09 06:49] LABS: BAND PERCENT MAN 3 % (0-8); BASOPHILS ABSOLUTE MAN 0.17 K/mm3 (0.00-0.23); BASOPHILS PERCENT MAN 2 % (0-2); EOSINOPHILS ABSOLUTE MAN 0.25 K/mm3 (0.00-0.68); EOSINOPHILS PERCENT MAN 3 % (0-6); LYMPHOCYTES ABSOLUTE MAN 1.29 K/mm3 (0.84-5.20); LYMPHOCYTES PERCENT MAN 15 % (21-46); METAMYELOCYTE ABSOLUTE MAN 0.08 K/mm3 (0.00-0.00); METAMYELOCYTE PERCENT MAN 1 % (0-0); MONOCYTES ABSOLUTE MAN 0.34 K/mm3 (0.16-1.47); MONOCYTES PERCENT MAN 4 % (4-13); MYELOCYTE ABSOLUTE MAN 0.17 K/mm3 (0.00-0.00); MYELOCYTE PERCENT MAN 2 % (0-0); NEUTROPHILS ABSOLUTE MAN 6.31 K/mm3 (1.96-9.15); SEG NEUTROPHILS PERCENT MAN 70 % (41-73); TOTAL CELLS COUNTED 100
[2024-11-09 06:50] LABS: Albumin, Blood 2.4 g/dL (3.4-5.0); Albumin/Globulin Ratio 0.8 (0.8-1.8); Bilirubin, Total 0.8 mg/dL (0.1-1.0); Bun/Creatinine Ratio 19.5 (12.0-20.0); Calcium, Blood 8.3 mg/dL (8.5-10.1); Creatinine, Blood 1.18 mg/dL (0.40-1.00); Potassium, Blood 3.8 mmol/L (3.5-5.5); Total Protein, Blood 5.4 g/dL (6.4-8.2)
[2024-11-09 07:39] VITALS: BP 106/73
[2024-11-09] MEDS ORDERED: Furosemide 40 MG Tab PO SCH (09:00)
[2024-11-09 15:04] VITALS: BP 112/72
[2024-11-09 19:23] VITALS: BP 101/55
--- NOTE | 2024-11-10 04:06 | NUR ---
SHIFT SUMMARY PATIENT HAD NO ACUTE CHANGES. ALERT ORIENTED WITH CONFUSION MOSTLY IN COAGULANT DIPPER HOURS. DENIES CHEST PAIN, SOB, AND N/V. VSS/AFEBRILE. SLEPT MOST OF THE SHIFT. CALL LIGHT IN REACH. BED IN LOWEST POSITION. WILL CONTINUE TO MONITOR UNTIL DAY SHIFT NURSE ASSUMES CARE.
[2024-11-10 05:19] VITALS: BP 119/71
[2024-11-10 05:20] LABS: Hematocrit 44.1 % (33.0-51.0); Hemoglobin 14.6 g/dL (11.5-16.0); Mean Corpuscular HGB Conc 33.1 g/dL (31.5-36.5); Mean Corpuscular Volume 91 fL (80-100); Mean Platelet Volume 10.1 fL (9.1-12.4); NRBC ABSOLUTE 0.02 K/mm3 (0.00-0.02); NRBC Auto 0.2 /100 WBC (0.0-0.2); Platelet Count 387 K/mm3 (150-400); RDW Coefficient Variation 14.9 % (11.7-14.2); RDW Standard Deviation 48.2 fL (35.1-46.3); Red Blood Cell Count 4.86 M/mm3 (3.80-5.20); White Blood Cell Count 9.98 K/mm3 (4.00-11.30)
[2024-11-10 05:39] LABS: BAND PERCENT MAN 3 % (0-8); BASOPHILS PERCENT MAN 0 % (0-2); EOSINOPHILS ABSOLUTE MAN 0.29 K/mm3 (0.00-0.68); EOSINOPHILS PERCENT MAN 3 % (0-6); LYMPHOCYTES ABSOLUTE MAN 1.99 K/mm3 (0.84-5.20); LYMPHOCYTES PERCENT MAN 20 % (21-46); METAMYELOCYTE ABSOLUTE MAN 0.49 K/mm3 (0.00-0.00); METAMYELOCYTE PERCENT MAN 5 % (0-0); MONOCYTES ABSOLUTE MAN 0.59 K/mm3 (0.16-1.47); MONOCYTES PERCENT MAN 6 % (4-13); MYELOCYTE ABSOLUTE MAN 0.39 K/mm3 (0.00-0.00); MYELOCYTE PERCENT MAN 4 % (0-0); NEUTROPHILS ABSOLUTE MAN 6.18 K/mm3 (1.96-9.15); SEG NEUTROPHILS PERCENT MAN 59 % (41-73); TOTAL CELLS COUNTED 100
[2024-11-10 05:51] LABS: Albumin, Blood 2.4 g/dL (3.4-5.0); Albumin/Globulin Ratio 0.8 (0.8-1.8); Bilirubin, Total 0.7 mg/dL (0.1-1.0); Bun/Creatinine Ratio 20.2 (12.0-20.0); Calcium, Blood 8.4 mg/dL (8.5-10.1); Creatinine, Blood 1.19 mg/dL (0.40-1.00); Globulin, Blood 2.9 g/dL (2.2-4.0); Potassium, Blood 3.9 mmol/L (3.5-5.5); Total Protein, Blood 5.3 g/dL (6.4-8.2)
[2024-11-10 08:57] VITALS: BP 117/76
[2024-11-10 15:57] VITALS: BP 135/81
[2024-11-10 19:11] VITALS: BP 145/69
[2024-11-10 23:43] VITALS: BP 139/61
[2024-11-11 03:57] VITALS: BP 150/74
--- NOTE | 2024-11-11 04:10 | NUR ---
SHIFT SUMMARY PATIENT HAD NO ACUTE CHANGES. ALERT ORIENTED WITH CONFUSION AT TIMES. DAUGHTER PRESENT AT SHIFT CHANGE. DENIES CHEST PAIN, SOB, AND N/V. AFEBRILE. PIV INTACT. TELE MONITOR AFIB 58. SLEPT MOST OF THE SHIFT. CALL LIGHT IN REACH. BED IN LOWEST POSITION. WILL CONTINUE TO MONITOR UNTIL DAY SHIFT NURSE ASSUMES CARE.
--- NOTE | 2024-11-11 05:21 | NUR ---
HEARING EXAMINER REPORTS PATIENT BALAJI DOWN TO MID 40'S WITH 3 SECOND PAUSE AND BACK TO AFIB 50'S. PATIENT AFIB 58 AT START OF SHIFT. PATIENT RESTING IN BED. TM.
[2024-11-11 06:29] LABS: Hematocrit 42.3 % (33.0-51.0); Hemoglobin 14.3 g/dL (11.5-16.0); Mean Corpuscular HGB 30.8 pg (26.0-34.0); Mean Corpuscular HGB Conc 33.8 g/dL (31.5-36.5); Mean Corpuscular Volume 91 fL (80-100); Mean Platelet Volume 9.8 fL (9.1-12.4); Platelet Count 365 K/mm3 (150-400); RDW Standard Deviation 49.4 fL (35.1-46.3); Red Blood Cell Count 4.65 M/mm3 (3.80-5.20); White Blood Cell Count 10.69 K/mm3 (4.00-11.30)
[2024-11-11 06:51] LABS: Albumin, Blood 2.5 g/dL (3.4-5.0); Bilirubin, Total 0.6 mg/dL (0.1-1.0); Bun/Creatinine Ratio 19.3 (12.0-20.0); Calcium, Blood 8.7 mg/dL (8.5-10.1); Creatinine, Blood 0.93 mg/dL (0.40-1.00); Globulin, Blood 2.6 g/dL (2.2-4.0); Potassium, Blood 4.4 mmol/L (3.5-5.5); Total Protein, Blood 5.1 g/dL (6.4-8.2)
[2024-11-11] MEDS ORDERED: Levothyroxine Sodium 0.125 MG Tab PO SCH (07:00)
[2024-11-11 07:31] LABS: BAND PERCENT MAN 3 % (0-8); BASOPHILS PERCENT MAN 1 % (0-2); EOSINOPHILS ABSOLUTE MAN 0.42 K/mm3 (0.00-0.68); EOSINOPHILS PERCENT MAN 4 % (0-6); LYMPHOCYTES ABSOLUTE MAN 2.13 K/mm3 (0.84-5.20); LYMPHOCYTES PERCENT MAN 20 % (21-46); METAMYELOCYTE ABSOLUTE MAN 0.32 K/mm3 (0.00-0.00); METAMYELOCYTE PERCENT MAN 3 % (0-0); MONOCYTES ABSOLUTE MAN 0.42 K/mm3 (0.16-1.47); MONOCYTES PERCENT MAN 4 % (4-13); NEUTROPHILS ABSOLUTE MAN 7.26 K/mm3 (1.96-9.15); SEG NEUTROPHILS PERCENT MAN 65 % (41-73); TOTAL CELLS COUNTED 100
[2024-11-11 07:49] VITALS: BP 132/84
[2024-11-11] MEDS ORDERED: Metoprolol Succinate 50 MG TABCR PO SCH ×2 (09:00→21:00)
[2024-11-11 11:13] VITALS: BP 147/70
[2024-11-11 16:10] VITALS: BP 124/55
--- NOTE | 2024-11-11 18:24 | NUR ---
SHIFT SUMMARY: PATIENT A+O X3. PATIENT WORKED c PHYSICAL/OCCUPATIONAL THERAPY TODAY. 1A c FWW TO BR. PATIENT NOTED TO HAVE RLE WEAKNESS. BREATH SOUNDS CLEAR. PATIENT NOTED TO HAVE BLE EDEMA. SCD'S IN ROOM. PATIENT NOTED TO HAVE A 3.4 SECOND PAUSE THIS AM. METOPROLOL AND DIGOXIN HELD PER MD. S1 S2 HEARD ON ASCULTATION. HEART RATE WITHIN 30-40'S AT REST. PLAN IS FOR SNF. PATIENT CARE ONGOING AT THIS TIME.
[2024-11-11 19:49] VITALS: BP 124/76
[2024-11-12 00:03] VITALS: BP 137/59
[2024-11-12 04:29] VITALS: BP 143/70
--- NOTE | 2024-11-12 05:18 | NUR ---
SHIFT SUMMARY PATIENT IS ALERT AND ORIENTED X3. PATIENT HAS HAD NO ACUTE EVENTS THIS SHIFT. VITAL SIGNS REVIEWED. PATIENT HAS NO COMPLAINTS OF SOB, NAUSEA, VOMITTING OR PAIN THIS SHIFT. PATIENT HAS BEEN ON TELE THIS SHIFT AND HAS BEEN BALAJI. METROPROLOL HELD FOR CJ. BED IN LOCKED AND LOWEST POSITION. CALL LIGHT IN PLACE.
[2024-11-12 06:16] LABS: Hematocrit 44.9 % (33.0-51.0); Hemoglobin 14.5 g/dL (11.5-16.0); Mean Corpuscular HGB 30.8 pg (26.0-34.0); Mean Corpuscular HGB Conc 32.3 g/dL (31.5-36.5); Mean Corpuscular Volume 95 fL (80-100); Platelet Count 317 K/mm3 (150-400); RDW Coefficient Variation 15.3 % (11.7-14.2); RDW Standard Deviation 52.4 fL (35.1-46.3); Red Blood Cell Count 4.71 M/mm3 (3.80-5.20); White Blood Cell Count 10.86 K/mm3 (4.00-11.30)
[2024-11-12 06:44] LABS: Bun/Creatinine Ratio 16.6 (12.0-20.0); Calcium, Blood 8.6 mg/dL (8.5-10.1); Creatinine, Blood 0.9 mg/dL (0.40-1.00); Potassium, Blood 4.3 mmol/L (3.5-5.5)
[2024-11-12 06:57] LABS: BAND PERCENT MAN 2 % (0-8); BASOPHILS PERCENT MAN 0 % (0-2); EOSINOPHILS ABSOLUTE MAN 0.54 K/mm3 (0.00-0.68); EOSINOPHILS PERCENT MAN 5 % (0-6); LYMPHOCYTES ABSOLUTE MAN 1.52 K/mm3 (0.84-5.20); LYMPHOCYTES PERCENT MAN 14 % (21-46); METAMYELOCYTE ABSOLUTE MAN 0.21 K/mm3 (0.00-0.00); METAMYELOCYTE PERCENT MAN 2 % (0-0); MONOCYTES ABSOLUTE MAN 0.32 K/mm3 (0.16-1.47); MONOCYTES PERCENT MAN 3 % (4-13); MYELOCYTE ABSOLUTE MAN 0.21 K/mm3 (0.00-0.00); MYELOCYTE PERCENT MAN 2 % (0-0); NEUTROPHILS ABSOLUTE MAN 8.03 K/mm3 (1.96-9.15); SEG NEUTROPHILS PERCENT MAN 72 % (41-73); TOTAL CELLS COUNTED 100
[2024-11-12 08:10] VITALS: BP 119/58
[2024-11-12] MEDS ORDERED: Metoprolol Succinate 50 MG TABCR PO SCH (09:00)
[2024-11-12 12:07] VITALS: BP 118/74
--- NOTE | 2024-11-12 17:02 | NUR ---
DISCHARGE NOTE PT DISCHARGED TO [facility], REPORT GIVEN TO NURSE AT THE FACILITY. IV REMOVED. TELE RETURNED. PACKET PROVIDED TO TRANSPORTER.
== END 2024-11-12 17:00 | DRG 65 ==
LOC: ER 16:44 → MEDS 16:45
PROVIDERS: Emergency Medicine; Registered Nurse; ADMIT Family Medicine
DX: I63.89 Other cerebral infarction (principal); I48.20 Chronic atrial fibrillation, unspecified; I50.32 Chronic diastolic (congestive) heart failure; N17.9 Acute kidney failure, unspecified; Z66 Do not resuscitate; R29.703 NIHSS score 3; I11.0 Hypertensive heart disease with heart failure; E03.9 Hypothyroidism, unspecified; K21.9 Gastro-esophageal reflux disease without esophagitis; R29.6 Repeated falls; E78.5 Hyperlipidemia, unspecified; I89.0 Lymphedema, not elsewhere classified; E66.01 Morbid (severe) obesity due to excess calories; R20.0 Anesthesia of skin; R13.10 Dysphagia, unspecified; G83.11 Monoplegia of lower limb affecting right dominant side; F41.9 Anxiety disorder, unspecified; Z79.890 Hormone replacement therapy; Z88.0 Allergy status to penicillin; Z79.899 Other long term (current) drug therapy; Z98.891 History of uterine scar from previous surgery; Z98.890 Other specified postprocedural states; Z90.710 Acquired absence of both cervix and uterus; Z87.440 Personal history of urinary (tract) infections; Z79.01 Long term (current) use of anticoagulants; Z68.31 Body mass index [BMI] 31.0-31.9, adult
CPT/HCPCS: 36415; 70450; 70496; 70498; 70551; 71045; 72148; 73502; 73600; 80048; 80053; 80162; 83690; 83735; 83880; 84439; 84443; 85025; 92610; 93005; 93010; 93306; 97110; 97161; 97166; 97530; 97535; 99285-25; A9270; G0378; J7030; Q9967

== ENCOUNTER → 2025-01-28 | Outpatient (CLI) | payer MEDICARE, OTHER | LOC: LAB SHORT 17:06 → LAB 17:06 | DX: N39.0 Urinary tract infection, site not specified (principal) | CPT/HCPCS: 87077; 87086; 87186 ==

== ENCOUNTER → 2025-03-04 | Outpatient (CLI) | payer MEDICARE, OTHER ==
[2025-03-04 15:27] LABS: Source, Urine Clean Catch
[2025-03-04 17:26] LABS: Bilirubin, Urine Neg (Neg); Color, Urine Yellow (P-Yellow); Glucose Qualitative, Urine Neg (Neg); Ketones, Urine Neg (Neg); Leukocyte Esterase, Urine 1+ (Neg); Protein, Urine 1+ (Neg); Specific Gravity, Urine 1.025 (1.003-1.022); Urobilinogen, Urine 1+ (Normal)
[2025-03-04 17:47] LABS: Red Blood Cells, Urine 0-2 /hpf (0-2)
== END | disposition home or self-care (01) ==
LOC: LAB 08:00 → LAB SHORT 08:00
PROVIDERS: Family Medicine
DX: R30.0 Dysuria (principal)
CPT/HCPCS: 81001; 87086

== ENCOUNTER 2025-03-07 17:13 | Emergency (ER) | payer MEDICARE, OTHER ==
[~2025-03-07] VITALS: Ht 162.6 cm; Wt 89.8 kg
[2025-03-07] MEDS ORDERED: NS 500 ML IV SCH ×2 (17:35→20:35)
[2025-03-07 18:10] LABS: BASOPHILS ABSOLUTE AUTO 0.05 K/mm3 (0.00-0.23); BASOPHILS PERCENT AUTO 0 % (0-2); EOSINOPHILS ABSOLUTE AUTO 0.03 K/mm3 (0.00-0.68); EOSINOPHILS PERCENT AUTO 0 % (0-6); Hematocrit 42.6 % (33.0-51.0); Hemoglobin 14.2 g/dL (11.5-16.0); IMMATURE GRAN ABSOLUTE AUTO 0.09 K/mm3 (0.00-0.10); IMMATURE GRAN PERCENT AUTO 1 % (0-1); LYMPHOCYTES ABSOLUTE AUTO 0.33 K/mm3 (0.84-5.20); LYMPHOCYTES PERCENT AUTO 2 % (21-46); MONOCYTES ABSOLUTE AUTO 0.47 K/mm3 (0.16-1.47); MONOCYTES PERCENT AUTO 3 % (4-13); Mean Corpuscular HGB Conc 33.3 g/dL (31.5-36.5); Mean Corpuscular Volume 89 fL (80-100); NEUTROPHILS ABSOLUTE AUTO 17.60 K/mm3 (1.96-9.15); NEUTROPHILS PERCENT AUTO 95 % (41-73); NRBC ABSOLUTE 0.00 K/mm3 (0.00-0.02); NRBC Auto 0.0 /100 WBC (0.0-0.2); Platelet Count 200 K/mm3 (150-400); RDW Coefficient Variation 13.3 % (11.7-14.2); RDW Standard Deviation 43.8 fL (35.1-46.3)
[2025-03-07] MEDS ORDERED: CefTRIAXone Sodium 1,000 MG in NS 100 ML IV ONE (18:40)
[2025-03-07 18:43] LABS: Alanine Aminotransfer (ALT/SGP 45.0 U/L (12-78); Albumin, Blood 2.7 g/dL (3.4-5.0); Albumin/Globulin Ratio 0.9 (0.8-1.8); Anion Gap 10.0 mmol/L (3-11); Aspartate Aminotrans (AST/SGOT 48.0 U/L (12-37); Bilirubin, Total 1.3 mg/dL (0.1-1.0); Blood Urea Nitrogen 17.0 mg/dL (8-24); CO2, Blood 28.0 mmol/L (21-32); Calcium, Blood 8.4 mg/dL (8.5-10.1); Chloride, Blood 104.0 mmol/L (98-108); Creatinine, Blood 0.78 mg/dL (0.40-1.00); Globulin, Blood 3.1 g/dL (2.2-4.0); Glucose, Blood 138.0 mg/dL (70-99); Potassium, Blood 4.0 mmol/L (3.5-5.5); Sodium, Blood 138.0 mmol/L (136-145); Total Protein, Blood 5.8 g/dL (6.4-8.2)
[2025-03-07 21:08] LABS: Source, Urine Clean Catch
[2025-03-07 21:13] LABS: Bilirubin, Urine Neg (Neg); Color, Urine Yellow (P-Yellow); Glucose Qualitative, Urine Neg (Neg); Ketones, Urine Neg (Neg); Leukocyte Esterase, Urine Neg (Neg); Protein, Urine 1+ (Neg); Specific Gravity, Urine 1.015 (1.003-1.022); Urobilinogen, Urine NORM (Normal)
[2025-03-07 21:27] LABS: Red Blood Cells, Urine 0-2 /hpf (0-2); White Blood Cells, Urine 0-2 /hpf (0-5)
[2025-03-08 00:16] VITALS: BP 135/100
== END 2025-03-08 00:18 | disposition home or self-care (01) ==
LOC: ER 17:13
PROVIDERS: Emergency Medicine
DX: E86.0 Dehydration (principal); E87.20 Acidosis, unspecified; I48.91 Unspecified atrial fibrillation; I11.0 Hypertensive heart disease with heart failure; K21.9 Gastro-esophageal reflux disease without esophagitis; Z88.0 Allergy status to penicillin; Z79.899 Other long term (current) drug therapy; Z79.01 Long term (current) use of anticoagulants
CPT/HCPCS: 36415; 74177; 80053; 81001; 83605; 83690; 85025; 96361; 96365; 96366; 99284-25; J0696; J7030; P9612; Q9967